=== PATIENT | male | born 1945 | race Caucasian/White ===

== ENCOUNTER 2022-03-23 19:40 | Emergency (ER) | payer MEDICARE, SELFPAY ==
--- NOTE | ~2022-03-23 | CT_ITS ---
EXAMINATION: CT brain wo con DATE: 03/23/2022 20:40 INDICATION: Left facial weakness. TECHNIQUE: Computed tomography (CT) of the head was performed without intravenous contrast. The mA wa s adjusted according to patient size. Iterative reconstruction technique was employed. The dose-lengt h product was 605.33 mGy-cm. 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 There is no intracranial hemorrhage or abnormal mass lesion. The ventricles are normal in size. The orbits are normal. The paranasal sin uses are clear. There is a small left mastoid effusion. IMPRESSION: 1. 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 Reviewed, dictated and finalized at location A. 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
[2022-03-23 19:46] VITALS: BP 148/80; PULSE 70; RESP 16; TEMP 36.7; O2SAT 100
[2022-03-23 20:09] VITALS: BP 131/76; PULSE 91; RESP 16; O2SAT 95
--- NOTE | 2022-03-23 20:22 | ED.GENADULT ---
HPI - General Adult General Chief complaint: Neuro Symptoms/Deficit Stated complaint: Facial Droop(for weeks) Time Seen by Provider: 03/23/22 19:53 History of Present Illness HPI narrative: this is a 68-year-old male presenting ED with a chief complaint of confusion. The patient is here with his Halina. Patient has no complaints outside of some possible numbness to his left side of his lips that has been going on for several weeks. The patient's is concerned because she feels that he has had several episodes of confusion over the last week and half. 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 She also says that he has been getting lost while driving. This confusion is not persistent and is only in those isolated episodes. She is concerned because they have it vacation planned in May and she wants to make sure he is okay before they leave. The patient denies headache, chest pain, difficulty breathing, belly pain, urinary problems, GI problems, numbness tingling weakness in extremity, balance issues difficulty speaking or swallowing. Related Data Allergies Allergy/AdvReac Type Severity Reaction Status Date / Time Penicillins Allergy Unknown Verified 11/06/17 14:47 Review of Systems Review of Systems: CONSTITUTIONAL: Denies night sweats. EYES: No eye pain ENT: Denies rhinorrhea CARDIOVASCULAR: Denies palpitations RESPIRATORY: Denies hemoptysis GASTROINTESTINAL: Denies hematemesis GENITOURINARY: Denies hematuria. SKIN: Denies rash MUSCULOSKELETAL: Denies myalgia. NEUROLOGIC: Denies weakness. PSYCHIATRIC: Denies delusions [facility] Past Medical History Medical History (Updated 03/23/22 @ 21:30 by Toni Meadows MD) Diabetes H/O prostate cancer Family History Family History Other Family history of Alzheimer's disease Family history of alcoholism Family history of hypercholesterolemia Family history of throat cancer Social History Social History Smoking status: Former smoker Smoking end date: 02/24/93 Alcohol intake: current Exam Narrative: APPEARANCE: No apparent distress. Patient is A&O x4, is pleasant polite Head: atraumatic. EYES: EOMI, NOSE: Atraumatic NECK: Trachea midline RESPIRATORY: No increased rate of breathing, CTAB CARDIOVASCULAR: RRR, ABDOMINAL: Non-distended, soft no guarding or rebound MUSCULOSKELETAl: No obvious deformities NEURO: Alert. Cranial nerves 2-12 grossly intact. Sensation light touch, motor function cerebellar function intact for 4 extremities. Gait exam was normal. No significant facial droop. SKIN:: Warm, dry. Normal color PSYCHIATRIC: Normal affect Course Vital Signs Vital signs: Vital Signs Temperature 98.1 F 03/23/22 19:46 Pulse Rate 70 03/23/22 19:46 Respiratory Rate 16 03/23/22 19:46 Blood Pressure 148/80 H 03/23/22 19:46 Pulse Oximetry 100 03/23/22 19:46 Oxygen Delivery Room Air 03/23/22 19:46 Temperature 98.1 F 03/23/22 19:46 Pulse Rate 91 03/23/22 20:09 Respiratory Rate 16 03/23/22 20:09 Blood Pressure 131/76 03/23/22 20:09 Pulse Oximetry 95 03/23/22 20:09 Oxygen Delivery Room Air 03/23/22 19:46 Medical Decision Making [facility] Narrative Medical decision making narrative: -Presentation:76-year-old male presenting with several episodes of confusion over the last week. Facial droop is minimal and there are no other neurologic findings. CT head, CBC, BMP and urinalysis have been ordered. 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
[2022-03-23 20:36] LABS: Basophils Percent Auto 0.4 % (0.2-1.2); Eosinophils Absolute Auto 0.1 K/mm3 (0-0.3); Eosinophils Percent Auto 0.7 % (0-4.4); Hematocrit 41.2 % (42.0-52.0); Hemoglobin 14.5 g/dL (14.0-18.0); Immature Granulocyte Absolute 0.01 K/mm3 (0.00-0.031); Immature Granulocyte Percent A 0.1 % (0-0.5); Lymphocytes Percent Auto 18.4 % (18.3-44.2); Mean Corpuscular HGB Conc 35.2 g/dl (32-36); Mean Corpuscular Hemoglobin 31.8 pg (26-34); Mean Corpuscular Volume 90.4 fl (80-100); Mean Platelet Volume 8.3 fl (7.4-10.4); Monocytes Absolute Auto 0.9 K/mm3 (0.1-0.6); Monocytes Percent Auto 10.4 % (2.6-8.5); Neutrophils Absolute Auto 5.7 K/mm3 (1.3-6.7); Platelet Count Result 196 k/mm3 (150-375); Red Blood Count 4.56 M/mm3 (4.6-6.20); Red Cell Distribution Width 12.9 % (11.5-14.5); White Blood Count 8.2 K/mm3 (4.5-10.0)
[2022-03-23 20:43] VITALS: BP 125/83; PULSE 78; RESP 18; O2SAT 95
[2022-03-23 20:45] LABS: Alanine Aminotransferase 19 U/L (6-50); Alkaline Phosphatase 88 U/L (38-126); Anion Gap 7 mmol/L (8-16); Aspartate Amino Transferase 28 U/L (17-59); Bilirubin,Total 0.9 mg/dL (0.2-1.3); Blood Urea Nitrogen 21 mg/dL (9-20); Calcium 9.1 mg/dL (8.4-10.2); Carbon Dioxide 27 mmol/L (22-30); Chloride 105 mmol/L (98-107); Estimated CRCL calculation 46 ml/min; Estimated Glomerular Filt Rate 53; Glucose 112 mg/dL (65-110); Potassium 3.4 mmol/L (3.4-5.0); Sodium 139 mmol/L (137-145)
[2022-03-23 20:54] LABS: Appearance Urine Clear (Clear); Bilirubin Urine Negative (Negative); Blood Urine Trace-intact (Negative); Color Urine Yellow (Yellow); Glucose Urine UA Negative (Negative); Ketones Urine Negative (Negative); Leukocyte Esterase Ur Negative LEU/UL (Negative); Nitrate Urine Negative (Negative); Protein Urine Negative (Negative); Urobilinogen Urine 0.2 mg/dL (<2.0); pH Urine 5.5 (5.0-9.0)
[2022-03-23 21:00] VITALS: BP 123/74; PULSE 80; RESP 18; O2SAT 95
[2022-03-23 21:03] LABS: Mucus Urine Rare /lpf; Squamous Epithelial Cell Urine Rare /hpf (Few); WBC Urine 0-3 /hpf
[2022-03-23 21:05] LABS: Add Urine Microscopic? YES
[2022-03-23 21:32] VITALS: BP 139/86; PULSE 77; RESP 13; O2SAT 95
== END 2022-03-23 21:44 | disposition home or self-care (01) ==
PROVIDERS: Emergency Provider Emergency Medicine
DX: F03.90 Unspecified dementia, unspecified severity, without behavioral disturbance, psychotic disturbance, mood disturbance, and anxiety (principal); E11.9 Type 2 diabetes mellitus without complications; E78.00 Pure hypercholesterolemia, unspecified; Z85.46 Personal history of malignant neoplasm of prostate; Z87.891 Personal history of nicotine dependence
CPT/HCPCS: 36415; 70450; 80053; 81001; 85025; 99284

== ENCOUNTER 2022-06-29 11:19 | Emergency (ER) | payer MEDICARE, SELFPAY ==
[2022-06-29 11:22] VITALS: BP 141/68; PULSE 99; RESP 18; TEMP 36.7; O2SAT 94
[2022-06-29 11:51] LABS: Basophils Absolute Auto 0.1 K/mm3 (0.0-0.1); Basophils Percent Auto 0.7 % (0.2-1.2); Eosinophils Percent Auto 0.2 % (0-4.4); Hematocrit 40.5 % (42.0-52.0); Hemoglobin 14.3 g/dL (14.0-18.0); Immature Granulocyte Absolute 0.02 K/mm3 (0.00-0.031); Immature Granulocyte Percent A 0.2 % (0-0.5); Lymphocytes Absolute Auto 1.25 K/mm3 (0.9-3.2); Lymphocytes Percent Auto 14.8 % (18.3-44.2); Mean Corpuscular HGB Conc 35.3 g/dl (32-36); Mean Corpuscular Hemoglobin 31.8 pg (26-34); Mean Platelet Volume 8.4 fl (7.4-10.4); Monocytes Absolute Auto 0.8 K/mm3 (0.1-0.6); Monocytes Percent Auto 9.7 % (2.6-8.5); Neutrophils Absolute Auto 6.3 K/mm3 (1.3-6.7); Neutrophils Percent Auto 74.4 % (45.5-73.1); Platelet Count Result 242 k/mm3 (150-375); Red Cell Distribution Width 12.8 % (11.5-14.5); White Blood Count 8.5 K/mm3 (4.5-10.0)
[2022-06-29 11:59] LABS: Alanine Aminotransferase 21 U/L (6-50); Albumin Level 4.3 g/dL (3.5-5.1); Alkaline Phosphatase 112 U/L (38-126); Anion Gap 9 mmol/L (8-16); Aspartate Amino Transferase 35 U/L (17-59); Bilirubin,Total 1.5 mg/dL (0.2-1.3); Blood Urea Nitrogen 22 mg/dL (9-20); Carbon Dioxide 28 mmol/L (22-30); Chloride 103 mmol/L (98-107); Estimated CRCL calculation 52 ml/min; Estimated Glomerular Filt Rate > 60; Glucose 119 mg/dL (65-110); Potassium 3.2 mmol/L (3.4-5.0); Sodium 140 mmol/L (137-145)
[2022-06-29 12:02] LABS: INR 1.1; Prothrombin Time 14.3 Seconds (11.1-14.7)
[2022-06-29 12:03] LABS: Partial Thromboplastin Time 26.2 SECONDS (22.3-36.8)
[2022-06-29 12:42] VITALS: BP 132/68; PULSE 80
[2022-06-29 12:44] VITALS: BP 124/64; PULSE 83
[2022-06-29 12:46] VITALS: BP 124/68; PULSE 88
--- NOTE | 2022-06-29 13:28 | ED.GIBLEED ---
HPI - GI Bleed General Chief complaint: GI Bleed Stated complaint: dark stool Time Seen by Provider: 06/29/22 11:36 History of Present Illness HPI Narrative: Patient is a 76-year-old male who presents ER with concerns for GI bleeding. Reports he returned from a cruise in the last week. Reports problems. She developed diarrhea beginning 06/16/2022. 3 days ago he began having dark black stools. In place may be associated with starting Pepto-Bismol. Last diarrhea was today. He has occasional cramping in his abdomen. No dyspepsia. No emesis. Denies fevers or chills he is on no blood thinning medication. No dizziness when going from sitting to standing. No syncope. Related Data Allergies Allergy/AdvReac Type Severity Reaction Status Date / Time Penicillins Allergy Unknown Verified 11/06/17 14:47 Review of Systems Review of Systems: All systems reviewed & are unremarkable except as noted in HPI and below Constitutional: Constitutional: Denies chills, Denies fatigue and Denies fever(s) ENT: Denies nasal congestion and Denies sore throat Cardiovascular: Cardiovascular: Denies chest pain and Denies radiating jaw, neck or arm pain Respiratory: Respiratory: Denies cough and Denies dyspnea Gastrointestinal: Gastrointestinal: Denies abdominal pain, Reports bloating, Denies heartburn, Reports diarrhea, Denies nausea and Denies vomiting Comments: Dark black stools. Neurologic: Denies syncope PMFSH Past Medical History Medical History (Updated 06/29/22 @ 13:51 by Aaron Pedersen MD) Diabetes H/O prostate cancer Family History Family History Other Family history of Alzheimer's disease Family history of alcoholism Family history of hypercholesterolemia Family history of throat cancer Social History Social History Smoking status: Former smoker Smoking end date: 02/24/93 Alcohol intake: current Exam Narrative: GENERAL: Well-appearing, well-nourished, and in no acute distress. HEAD: Normocephalic, atraumatic. EYES: PERRL and EOMI. ENT: Mucous membranes moist. CHEST: Clear to auscultation. No respiratory distress. HEART: Regular rate and rhythm. Normal peripheral pulses. ABDOMEN: Soft, nontender, nondistended. Hemoccult positive without gross blood. EXTREMITIES: Normal range of motion. No edema. SKIN: Warm, dry, no rash. NEURO: Alert and oriented x3. PSYCH: Normal mood and affect. Course Course Emergency Course: Patient resting comfortably. Informed results. Discussed case with Dr. Bravo triage with GI. Patient be placed on PPI for home and also a short course of antibiotics for traveler's diarrhea. Patient family verbalized understanding of treatment plan and they will follow-up with GI outpatient discussed return precautions. Vital Signs Vital signs: Vital Signs Temperature 98.1 F 06/29/22 11:22 Pulse Rate 99 06/29/22 11:22 Respiratory Rate 18 06/29/22 11:22 Blood Pressure 141/68 H 06/29/22 11:22 Pulse Oximetry 94 06/29/22 11:22 Oxygen Delivery Room Air 06/29/22 11:22 Temperature 98.1 F 06/29/22 11:22 Pulse Rate 88 06/29/22 12:46 Respiratory Rate 18 06/29/22 11:22 Blood Pressure 124/68 06/29/22 12:46 Pulse Oximetry 94 06/29/22 11:22 Oxygen Delivery Room Air 06/29/22 11:22 MDM - GI Bleed Lab Data 06/29/22 11:43 06/29/22 11:43 Labs: Lab Results 06/29/22 Range/Units 11:43 WBC 8.5 (4.5-10.0) K/mm3 RBC 4.50 L (4.6-6.20) M/mm3 Hgb 14.3 (14.0-18.0) g/dL Hct 40.5 L (42.0-52.0) % MCV 90.0 (80-100) fl MCH 31.8 (26-34) pg MCHC 35.3 (32-36) g/dl RDW 12.8 (11.5-14.5) % Plt Count 242 (150-375) k/mm3 MPV 8.4 (7.4-10.4) fl Immature Gran % (Auto) 0.2 (0-0.5) % Neut % (Auto) 74.4 H (45.5-73.1) % Lymph % (Auto) 14.8 L (18.3-44.2) % Bent % (Auto)
== END 2022-06-29 14:06 | disposition home or self-care (01) ==
PROVIDERS: Emergency Provider Emergency Medicine
DX: A09 Infectious gastroenteritis and colitis, unspecified (principal); K92.2 Gastrointestinal hemorrhage, unspecified; E11.9 Type 2 diabetes mellitus without complications; Z85.46 Personal history of malignant neoplasm of prostate; Z87.891 Personal history of nicotine dependence
CPT/HCPCS: 36415; 80053; 85025; 85610; 85730; 86850; 86900; 86901; 99283

== ENCOUNTER 2024-10-01 02:58 | Emergency (ER) | payer OTHER, SELFPAY ==
--- NOTE | ~2024-10-01 | CT_ITS ---
CT of the Abdomen and Pelvis: Indication: Abdominal pain Technique: 2.5 mm axial scans were obtained through the abdomen and pelvis following intravenous adm inistration of 100 cc of Omnipaque 350. Dose reduction technique was used on this scan by utilizing a utomated exposure control and iterative reconstruction technique. The dose-length product (DLP) was 7 34.58 mGy-cm. Findings: Scans through the lung bases demonstrate bibasilar atelectasis and bibasilar probable pleu ral thickening or scarring. The liver, spleen, pancreas, adrenals and left kidney are within normal limits. Small gallstones are present. Suggest a mild posterior right ureter with mild asymmetric right perinephric stranding. Ther e are atherosclerotic calcifications of the aorta. No lymphadenopathy. No bowel obstruction or bowel wall thickening. There is no evidence to suggest acute appendicitis. Images through the pelvis were performed. Tiny urinary bladder stone present. No pelvic mass evident. No ascites. Impression: Cholelithiasis. Tiny urinary bladder stone. Mild fullness of the right ureter and right perinephric stranding could r eflect sequelae of recently passed stone. Bibasilar atelectasis and pleural thickening/scarring. Reviewed, dictated and finalized at location . Impression: Cholelithiasis. Tiny urinary bladder stone. Mild fullness of the right ureter and right perinep hric stranding could reflect sequelae of recently passed stone. Bibasilar atelectasis and pleural thickening/scarring.
--- OUTSIDE RECORDS SUMMARY | 2024-10-01 02:59 | XMS_ITS | Continuity of Care Document ---
Author Organization [facility] Address [address] [place] [address] Phone Care Team Providers Care Informatics Manager Name Role Phone Alexis Blue MD Unavailable Unavailable Allergies, Adverse Reactions, Alerts Substance Reaction Status Criticality penicillin G Active No Information Medications Medication Instructions Dosage Effective Dates (start - stop) Status Comments metformin ER 1,000 mg tablet,extended release 24hr take 1 tablet (1000MG) by oral route every day with the evening meal 1000 MG - Active Lipitor 40 mg tablet take 1 tablet (40MG ) by oral route every day 40 MG - Active Lopid 600 mg tablet take 1 tablet (600MG ) by oral route 2 times every day 30 minutes before morning and evening meal 600 MG - Active losartan 50 mg tablet take 1 tablet (50MG) by oral route every day - Active Procedures Procedure Date OFFICE/OUTPATIENT VISIT, EST PREV VISIT, EST, 65 & OVER OFFICE/OUTPATIENT VISIT, EST OFFICE/OUTPATIENT VISIT, EST OFFICE/OUTPATIENT VISIT, EST OFFICE/OUTPATIENT VISIT, EST PREV VISIT, EST, 65 & OVER OFFICE/OUTPATIENT VISIT, EST OFFICE/OUTPATIENT VISIT, EST PREV VISIT, EST, 65 & OVER OFFICE/OUTPATIENT VISIT, EST OFFICE/OUTPATIENT VISIT, EST Advance Directives Directive Yes / No Effective Date File Name No Information Encounters Encounter Description Practice Location Reason(s) For Visit Diagnoses Date Provider Providers Copied on Encounter OFFICE/OUTPA TIENT VISIT, EST [facility], [address], [place], [place], [address], [place] tel:[phone] [facility] HLP (chief complaint) DM (chief complaint) HTN (chief complaint) Dietary surveillance and counselingUnspecifi ed essential hypertensionOther and unspecified hyperlipidemiaBritt le diabetesPSA increased 5 Mirza Espinoza. [address], [place], [place], [address] , [place]. tel:[phone] Referring Provider: Alexis Blue, [address], [place], [place], [address]. tel:[phone] PREV VISIT, EST, 65 & OVER [facility], [address], [place], [place], [id number], [place] tel:[phone] [facility] PHysicaxl (chief complaint) Dietary surveillance and counselingRoutine medical examPSA increasedOther and unspecified hyperlipidemiaBritt le diabetes 5 Mirza Espinoza. [address], [place], [place], [address] , [place]. tel:[phone] Referring Provider: Alexis Blue, [address], [place], [place], [address]. tel:[phone] [facility], [address], [place], [place], [address], [place] tel:[phone] [facility] No Information 5 Mirza Espinoza. [address], [place], [place], [address] , [place]. tel:[phone] [facility], [address], [place], [place], [address], [place] tel:[phone] [facility] No Information 5 Mirza Espinoza. [address], [place], [place], [address] , [place]. tel:[phone] OFFICE/OUTPA TIENT VISIT, EST [facility], [address], [place], [place], [address], [place] tel:[phone] [facility] HTN (chief complaint) shingle (chief complaint) DM (chief complaint) GERD (chief complaint) Dietary surveillance and counselingHypertens ion, UnspecifiedDiabetes Mellitus, Adult Onset, UncontrolledHerpes zoster without mention of complicationGERD 5 Mirza Espinoza. [address], [place], [place], [address] , [place]. tel:[phone] Referring Provider: Alexis Blue, [address], [place], [place], [address]. tel:[phone] OFFICE/OUTPA TIENT VISIT, [facility], [address], [place], [place], [address], [place] tel:[phone] [facility] rash (chief complaint) Herpes zoster without mention of complication 5 Mirza Espinoza. [address], [place], [place], [address] , [place]. tel:[phone] Referring Provider: Gus [address], [place], [place], [address]. tel:[phone] OFFICE/OUTPA TIENT VISIT, [facility], [address], [place], [place], [address], [place] tel:[phone] [facility] HLP (chief complaint) DM (chief complaint) HTN (chief complaint) cough (chief complaint) Dietary surveillance and counselingDiabetes Mellitus Type 2, UncomplicatedHypert ension, UnspecifiedOther and unspecified hyperlipidemiaCough 4 Mirza Espinoza. [address], [place], [place], [address] , [place]. tel:[phone] Referring Provider: [address], [place], [place], [address]. tel:[phone] PREV VISIT, EST, 65 & OVER [facility], [address], [place], [place], [address], [place] tel:[phone] [facility] PHysical (chief complaint) Dietary surveillance and counselingRoutine Medical ExamDiabetes Mellitus Type 2, UncomplicatedHypert ension, UnspecifiedOther and unspecified hyperlipidemiaRouti ne Medical Exam 4 Mirza Benson [address], [place], [place], [address] , [place]. [phone] Referring Provider: [address], [place], [place], [address]. tel:[phone] OFFICE/OUTPA TIENT VISIT, [facility], [address], [place], [place], [address], [place] tel:[phone] [facility] skin infection (chief complaint) Dietary surveillance and counselingCelluliti s and abscess of leg, except foot 3 Mirza Benson [address], [place], [place], [address] , [place]. [phone] Referring Provider: [address], [place], [place], [address]. tel:[phone] PREV VISIT, EST, 65 & OVER [facility], [address], [place], [place], [address], [place] tel:[phone] [facility] Physical (chief complaint) Dietary surveillance and counselingRoutine Medical ExamOther and unspecified hyperlipidemiaDiabe chris Mellitus, Adult Onset, UncontrolledRoutine Medical ExamGERD 3 Mirza Benson [address], [place], [place], [address] , [place]. [phone] Referring Provider: Gus [address], [place], [place], [address]. tel:[phone] OFFICE/OUTPA TIENT VISIT, [facility], [address], [place], [place], [address], [place] tel:[phone] [facility] HLP (chief complaint) DM (chief complaint) early satiety (chief complaint) Dietary surveillance and counselingDiabetes Mellitus Type 2, UncomplicatedOther and unspecified hyperlipidemiaHyper tension, Unspecified 2 Mirza Benson [address], [place], [place], [address] , . tel:[phone] Referring Provider: [address], [place], [place], [address]. tel:[phone] Family History Family Member Type Diagnosis Age At Onset Father Problem (finding) Cancer, throat Mother Problem (finding) natural cause Brother Problem (finding) Alive and well Payers Payer name Insurance type Covered constitution party ID Authoriza tion(s) No Information Social History Type Description Quantity Date Captured Comments Alcohol Use Details Caffeine Use Details Unknown Tobacco Use Status Occasional cigarette smoker Smoking Status Current some day smoker 015 Sex Male Vital Signs Date / Time: Height Weight BMI Pulse Rate Blood Pressure Temperature Respiratory Rate Body Surface Area Head Circumference BMI percentile Pulse Ox Inhaled Ox 4:55 PM 172.72 cm 213.00 lbs 32.3 9 kg/m eter (2) 76 /min 101/64 mm[Hg] 98.6 F 14 /min Chief Complaint And Reason For Visit From encounter dated '11/07/2014 15:30'. HLP (chief complaint). Description: Pt takes lopid and lipitor. Pt denies any myalgai DM (chief complaint). Description: Pt takes metformin. Pt has been doing better with diet and exercise. Pt is cutting down on fat and carb now HTN (chief complaint). Description: Pt takes losartan for HTN. His BP is ok. Plan Of Treatment Date Type Action Status Referral Ordered: Urology (related to PSA increased) ordered Referral Ordered: Referrals: Urology. Evaluate and treat ordered Referral Ordered: CHEST X-RAY PA/LAT TWO-VIEWS ordered History Of Present Illness Encounter Date Complaint History Of Prese nt Illness HTN Pt takes losarta n for HTN. His BP is ok. DM Pt takes metform in. Pt has been doing better with diet and exercise. Pt is cutting down on fat and carb now HLP Pt takes lopid a nd lipitor. Pt denies any myalgai PHysicaxl Pt needs annual physical. Pt had borderline Diabette. His A1c is 6.3. P takes metformin and his BG is around 115 at home. Pt has low vitamin D and also mildly elevated TG. His PSA is creeping up. Pt denies any urinary symptmos. Pt denies any other ocmplaints Instructions Date Instruction Additional Infor mation Prescribed Diet Educ ation/Lifestyle Education Regarding Diet Related to Dietary Surveillance and Counseling Prescribed Activity and Exercise Education Related to Dietary Surveillance and Counseling Prescribed Activity and Exercise Education Related to Dietary Surveillance and Counseling Prescribed Diet Educ ation/Lifestyle Education Regarding Diet Related to Dietary Surveillance and Counseling Physical activity counseling Rel ated to Dietary surveillance counseling Decrease caloric intake Related to Dietary surveillance counseling Dietary counseling Related to Di etary surveillance counseling Decrease caloric intake Related to Dietary surveillance counseling Dietary counseling Related to Di etary surveillance counseling Decrease caloric intake Related to Dietary surveillance counseling Dietary counseling Related to Di etary surveillance counseling Decrease caloric intake Related to Dietary surveillance counseling Dietary counseling Related to Di etary surveillance counseling Decrease caloric intake Related to Dietary surveillance counseling Decrease caloric intake Related to Dietary surveillance counseling Dietary counseling Related to Di etary surveillance counseling Assessments Type Assessment Date assessment Dietary surveillance and genetic counsellor ing assessment Unspecified essential hypertensi on assessment Other and unspecified hyperlipid emia assessment Brittle diabetes assessment PSA increased Mental Status Date Cognitive Assessment Orientation - [place] ed to time, place, person, situation.
--- OUTSIDE RECORDS SUMMARY | 2024-10-01 03:00 | XMS_ITS | Continuity of Care Document ---
Author Organization [facility] Address [address] [place] [address] Phone Care Team Providers Care Pail Bailer Name Role Phone [facility] Unavailable Unavail able Hannah Colindres Unavailable Unavailable Procedures Procedure Date Miscellaneous Vision Service - Supplies Vision Svcs Frames Purchases BF Plastic Sphcyl [place] To +/-4d .12-2d Scratch Resistant Coating Tint Photochromatic, Plastic Eye Exam, New Patient Refraction Advance Directives Directive Yes / No Effective Date File Name No Information Encounters Encounter Description Practice Location Reason(s) For Visit Diagnoses Date Provider Providers Copied on Encounter [facility], [address] [place] [address] [address], [place], [place], [address], [place] tel:[phone] [facility] No Information 7 [facility] . [address] [place] [address], [id number], [place]. tel:[phone] Consulting Provider: Hannah Colindres, [address] [place], [address]. tel:[phone] [facility], [address] [place] [address] [address], [place], [place], [address], tel:[phone] [facility] No Information 200 7 [facility] . [address], [place], [address], [place]. tel:[phone] Referring Provider: Mariano Alicea OD Rodri, [address], [place], [address]. tel:[phone] singer Provider: Isabelle De Leon, [address] [facility], [place], [address]. tel:[phone] [facility], [address], [place], [place], [address], [place] tel:[phone] [facility] No Information 7 Alicea MONIQUE Quintana. [address] , [address], [place], [address], [place]. tel:[phone] Family History Family Member Type Diagnosis Age At Onset No Information Payers Payer name Insurance type Covered alliance party ID Authoriza tion(s) No Information Social History Type Description Quantity Date Captured Comments Sex Male Smoking Status No Information Chief Complaint And Reason For Visit No Information Reason For Referral Reason For Referral No Information History Of Present Illness Encounter Date Complaint History Of Prese nt Illness No Information Functional Status Date Functional Assessmen t No Information Instructions Date Instruction Additional Infor mation No Information Assessments Type Assessment Date No Information Patient Care Teams Name Effective Dates (start - stop) Status Members No Information
--- OUTSIDE RECORDS SUMMARY | 2024-10-01 03:00 | XMS_ITS | Continuity of Care Document ---
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 It does not include entries that were removed or entered in error. 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 [facility] Deficiency of vitamin D3 Active Condition [facility] Diabetes mellitus Active Condition [facility] Exposure to potentially hazardous substance Active Condition [facility] Gastroesophageal reflux disease Active Condition [facility] Hyperlipidemia Active Condition [facility] Hypertension Active Condition [facility] Mild cognitive impairment Active Condition Sep 20, 2022 Entered By: EMIR HENDERSON Comment: Mild Vascular Neurocognitive Disorder [facility] Prostate cancer Active Condition [facility] Tinnitus Active Condition [facility] Diagnosis: ICD-10-CM H04.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 Active Diagnosis [facility] Diagnosis: ICD-10-CM L21.8 Other seborrheic dermatitis Active Diagnosis [facility] Diagnosis: ICD-10-CM I10 Essential (primary) hypertension Active Diagnosis [facility] Diagnosis: ICD-10-CM H91.93 Unspecified hearing loss, bilateral Active Diagnosis [facility] Diagnosis: ICD-10-CM I49.9 Cardiac arrhythmia, unspecified Active Diagnosis [facility] Diagnosis: ICD-10-CM 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 [facility] Diagnosis: ICD-10-CM H90.3 Sensorineural hearing loss, bilateral Active Diagnosis [facility] Diagnosis: ICD-10-CM R42 Dizziness and giddiness Active Diagnosis [facility] Diagnosis: ICD-10-CM E11.9 Type 2 diabetes mellitus without complications Active Diagnosis [facility] Diagnosis: ICD-10-CM I95.1 Orthostatic hypotension Active Diagnosis [facility] Diagnosis: ICD-10-CM L30.9 Dermatitis, unspecified Active Diagnosis [facility] Medications Combined list of outpatient medications from Department of Defense and [facility] Affairs facilities.Medications provided include 1) outpatient medications from the last 15 months, and 2) patient-reported medications. Medication Details Route Status Patient Instructions Prescription Expires Prescription Number Last Dispense Date Ordering Provider Order Date Order Qty Source AMLODIPINE BESYLATE 10MG TAB TAKE ONE TABLET BY MOUTH ONCE A DAY FOR HEART/BL OOD PRESSURE ORAL ACTIVE 04/17/2025 [id number] ACTY LINO 2024 90 [facility] AMLODIPINE BESYLATE 10MG TAB TAKE ONE TABLET BY MOUTH ONCE A DAY FOR HEART/BL OOD PRESSURE ORAL DISCONT INUED 03/11/2024 [id number] ME CARLO TTISA 2023 90 [facility] ATORVASTATI N CA 80MG TAB TAKE ONE-HALF TABLET BY MOUTH EVERY EVENING FOR CHOLESTE ROL. REPORT ANY UNEXPLAI SHAHZAD MUSCLE PAIN/WEA KNESS TO PROVIDER . ORAL ACTIVE 07/07/2025 [id number] ME CARLO TTISA 2024 45 [facility] ATORVASTATI N CA 80MG TAB TAKE ONE-HALF TABLET BY MOUTH EVERY EVENING FOR CHOLESTE ROL. REPORT ANY UNEXPLAI SHAHZAD MUSCLE PAIN/WEA KNESS TO PROVIDER . ORAL DISCONT INUED 07/04/2024 [id number] CARLOME TTISA 2024 45 [facility] ATORVASTATI N CA 80MG TAB TAKE ONE-HALF TABLET BY MOUTH EVERY EVENING FOR CHOLESTE ROL. REPORT ANY UNEXPLAI SHAHZAD MUSCLE PAIN/WEA KNESS TO PROVIDER . ORAL DISCONT INUED 03/11/2024 [id number] MATOS,ME TTISA 2023 45 [facility] CALCIUM 200MG (CA CITRATE-950 MG) TAB TAKE THREE TABLETS BY MOUTH ONCE A DAY ORAL ACTIVE TABSTEPHAN GUARDADO THERESA L 2018 [facility] CARBOXYMETH YLCELLULOSE NA 0.5% SOLN,OPH INSTILL 1 DROP IN BOTH EYES FOUR TIMES A DAY NEEDED OPHTHA LMIC 07/07/2024 [id number] JUHI ,PJ 2023 30 [facility] CHOLECALCIF YARELIS 50MCG (2,000UNIT) TAB TAKE ONE TABLET BY MOUTH ONCE A DAY FOR VITAMIN D DEFICIEN CY. ORAL ACTIVE 07/07/2025 [id number] MATOS,WI TTISA 2024 100 [facility] CHOLECALCIF YARELIS 50MCG (2,000UNIT) TAB TAKE ONE TABLET BY MOUTH ONCE A DAY FOR VITAMIN D DEFICIEN CY. ORAL DISCONT INUED 06/17/2024 [id number] 5 MATOS,WI TTISA 2024 100 [facility] CHOLECALCIF YARELIS 50MCG (2,000UNIT) TAB TAKE ONE TABLET BY MOUTH ONCE A DAY FOR VITAMIN D DEFICIEN CY. ORAL DISCONT INUED 03/11/2024 [id number] MATOS,WI TTISA 2023 100 [facility] CHONDROITIN /GLUCOSAMIN E CAP/TAB TAKE 1 CAP/TAB BY MOUTH ONCE A DAY ORAL ACTIVE STEPHAN SUÁREZ THERESA L 2018 [facility] CLOBETASOL PROPIONATE 0.05% SOLN,TOP APPLY SPARINGL Y TO AFFECTED AREA(S) THREE TIMES A DAY NEEDED FOR SEBORRHE IC DERMATIT IS (EXTERNA L USE ONLY) TOPICA L ACTIVE 04/22/2025 [id number] XAVIER CRAWFORD G 2024 50 [facility] CLOBETASOL PROPIONATE 0.05% SOLN,TOP APPLY SPARINGL Y TO AFFECTED AREA(S) THREE TIMES A DAY NEEDED FOR SEBORRHE IC DERMATIT IS (EXTERNA L USE ONLY) TOPICA L DISCONT INUED 05/16/2024 [id number] NAOMI STEEL P 2023 50 [facility] CARMELO N EMPAGLIFLOZ IN 25MG TAB TAKE ONE-HALF TABLET BY MOUTH ONCE A DAY FOR DIABETES ORAL 03/11/2024 [id number] CARLOWI TTISA 2023 45 [facility] KETOCONAZOL E 2% SHAMPOO USE SHAMPOO TO AFFECTED AREA(S) ONCE A DAY (EXTERNA L USE ONLY) (SHAKE WELL) TOPICA L ACTIVE 04/17/2025 [id number] CATY LINO 2024 120 [facility] KETOCONAZOL E 2% SHAMPOO USE SHAMPOO TO AFFECTED AREA(S) ONCE A DAY (EXTERNA L USE ONLY) (SHAKE WELL) TOPICA L DISCONT INUED 03/11/2024 [id number] 5 CARLOWI TTISA 2023 120 [facility] METFORMIN HCL 500MG 24HR TAB,SA TAKE ONE TABLET BY MOUTH TWICE A DAY FOR BLOOD SUGAR CONTROL. TAKE WITH FOOD. AVOID ALCOHOL. DISCONTI NUE BEFORE GETTING XRAY DYE. ORAL ACTIVE 04/17/2025 [id number] 5 CATY LINO 2024 180 [facility] METFORMIN HCL 500MG 24HR TAB,SA TAKE ONE TABLET BY MOUTH TWICE A DAY FOR BLOOD SUGAR CONTROL. TAKE WITH FOOD. AVOID ALCOHOL. DISCONTI NUE BEFORE GETTING XRAY DYE. ORAL DISCONT INUED 03/11/2024 [id number] CARLOWI TTISA 2023 180 [facility] MULTIVITAMI NS CAP/TAB TAKE 1 TABLET BY MOUTH ONCE A DAY FOR SUPPLEME NTATION. ORAL ACTIVE 04/17/2025 [id number] 5 CATY LINO 2024 100 [facility] MULTIVITAMI NS CAP/TAB TAKE 1 TABLET BY MOUTH ONCE A DAY FOR SUPPLEME NTATION. ORAL DISCONT INUED 03/11/2024 [id number] MATOS,ME TTISA 2023 100 [facility] OMEPRAZOLE 20MG CAP,EC TAKE ONE CAPSULE BY MOUTH EVERY MORNING BEFORE A MEAL TO LOWER STOMACH ACID. TAKE 30 MINUTES PRIOR TO FOOD. ORAL ACTIVE 04/17/2025 [id number] 5 HESTERCATY BLISS C 2024 90 [facility] OMEPRAZOLE 20MG CAP,EC TAKE ONE CAPSULE BY MOUTH EVERY MORNING BEFORE A MEAL TO LOWER STOMACH ACID. TAKE 30 MINUTES PRIOR TO FOOD. ORAL DISCONT INUED 03/11/2024 [id number] 4 CARLOWI TTISA 2023 90 [facility] PSYLLIUM PWDR,ORAL MIX AND DRINK 1 TEASPOON FUL BY MOUTH ONCE A DAY NEEDED FOR FIBER SUPPLEME NTATION MIX IN GLASS OF WATER/JU ICE. FLAVOR SUBSTITU TIONS MAY/WILL OCCUR AND SPECIFIC VARIETIE S WILL NOT BE PROVIDED . ORAL 03/11/2024 [id number] MATOSWI TTISA 2023 390 [facility] VITAMIN B COMPLEX CAP TAKE 1 CAPSULE BY MOUTH QAM ORAL ACTIVE STEPHAN SUÁREZ THERESA L 2018 [facility] Immunizations Combined list of available immunizations from the Department of Defense and [facility] Affairs facilities. Immunization Series Date Given Administered By Site Reaction Lot Number CVX Code Drug Overseer Kosher Kitchen Status Comments Source COVID-19 (Fashion Genome Project), MRNA, LNP-S, PF, LOVE-SUCROSE, 30 MCG/0.3 ML (AGES 12+ YEARS) 2023 309 complet ed Completed Series, HISTORICA L INFORMATI ON - FROM OTHER PROVIDER, [facility] INFLUENZA, UNSPECIFIED FORMULATION 2023 88 complet ed Completed Series, HISTORICA L INFORMATI ON - FROM OTHER PROVIDER, [facility] COVID-19 (MODERNA), MRNA, LNP-S, PF, 50 MCG/0.5 ML (AGES 12+ YEARS) 1 2023 NOHELIA NICHOLS RIGHT DELTO ID [id number] 312 complet ed [facility] AT [facility] INFLUENZA VACCINE, QUADRIVALENT, ADJUVANTED 6 2022 205 complet ed HISTORICA L INFORMATI ON - FROM OTHER REGISTRY, [facility] INFLUENZA, UNSPECIFIED FORMULATION 2022 88 complet ed Completed Series, HISTORICA L INFORMATI ON - SOURCE UNSPECIFI ED, [facility] INFLUENZA, HIGH-DOSE, QUADRIVALENT 2021 197 complet ed HISTORICA L INFORMATI ON - FROM OTHER PROVIDER, Partner:Cyrus NUNEZ.Admin istered by:[facility] [id number].( [phone]).[facility]:[phone] .Address: [address] [place] [address] [email or web address] [id number] Dosage: ML [facility].7 [facility] (PFIZER), MRNA, LNP-S, PF, 30 MCG/0.3 ML DOSE 3 2020 208 complet ed PFR; [id number]; 1 [facility] N INFLUENZA VACCINE, QUADRIVALENT, ADJUVANTED 2020 205 complet ed [facility] ZOSTER RECOMBINANT 2 2020 187 complet ed [facility] ZOSTER RECOMBINANT 1 2020 187 complet ed [facility] COVID-19 (PFIZER), MRNA, LNP-S, PF, 30 MCG/0.3 ML DOSE 2 2020 208 complet ed PFR; [id number]; 1 [facility] COVID-19 (Fashion Genome Project), MRNA, LNP-S, PF, 30 MCG/0.3 ML DOSE 1 2020 208 complet ed PFR; [id number]; [address] [facility] INFLUENZA, HIGH-DOSE, QUADRIVALENT 2019 197 complet ed HISTORICA L INFORMATI ON - FROM OTHER PROVIDER, [facility] INFLUENZA, UNSPECIFIED FORMULATION 2019 88 complet ed [facility] PNEUMOCOCCAL POLYSACCHARID E PPV23 2019 33 complet ed [facility] INFLUENZA, INJECTABLE, MDCK, PRESERVATIVE FREE, QUADRIVALENT 2018 171 complet ed 02, Partner: [facility]. Administe red by: [facility] Clinician (NPI=Not Provided) . Partner 84 Lot#: [id number] Mfr: SEQIRUS [facility] TDAP 2018 115 complet ed Right Deltoid [facility] PNEUMOCOCCAL CONJUGATE PCV 13 2018 133 complet ed vaccine sheet from [employer] [facility] INFLUENZA, UNSPECIFIED FORMULATION 2017 88 complet ed [facility] INFLUENZA, HIGH DOSE SEASONAL 2 2017 135 complet ed HISTORICA L INFORMATI ON - FROM OTHER REGISTRY, [facility] N INFLUENZA, SPLIT (INCL. PURIFIED SURFACE ANTIGEN) 1 2017 15 complet ed HISTORICA L INFORMATI ON - FROM OTHER REGISTRY, [facility] Results Combined list of recent chemistry, hematology and other laboratory results from Department of Defense and Veterans Affairs, ranging from 15 months to all on record, depending upon the facility. Order Name Results Value Reference Range Date Interpretation Specimen Comments Source GLUCOSE,BL OOD-poct (STL) GLUCOSE [MASS/VOLUM E] IN BLOOD BY AUTOMATED TEST STRIP 116 mg/dL 72 - 99 04/16 H Specimen Type: BLOOD Comment: Test Performed by: [id number] Meter #: [id number] Ordering Provider: Jose Manuel REGALADO Report Released Date/Time: Apr 16, 2024 03:10 PM Reporting Lab: [address] [facility] [address] Performing Lab: [facility] [address] [place] [address] [facility] URINALYSIS (STL-PB) COLOR OF URINE Light- Yellow 09/22 Specimen Type: URINE Comment: High concentratio ns of glucose and protein affect specific gravity. Therefore, specific gravity is corrected using the concentratio ns of glucose and protein obtained from test strip measurement. Very high concentratio ns of glucose (>1000 mg/dL) or protein (>600 mg/dL) in the urine may affect the reliability of the specific gravity results. Clinical correlation is suggested. Ordering Provider: MIGDALIA MURPHY N Report Released Date/Time: Sep 22, 2023 10:50 AM Reporting Lab: [address] Performing Lab: [address] URINALYSIS (L-PB) BILIRUBIN.T OTAL [PRESENCE] IN URINE BY TEST STRIP Negati vemg/d L 09/22 Specimen Type: URINE Comment: High concentratio ns of glucose and protein affect specific gravity. Therefore, specific gravity is corrected using the concentratio ns of glucose and protein obtained from test strip measurement. Very high concentratio ns of glucose (>1000 mg/dL) or protein (>600 mg/dL) in the urine may affect the reliability of the specific gravity results. Clinical correlation is suggested. Ordering Provider: MIGDALIA MURPHY N Report Released Date/Time: Sep 22, 2023 10:50 AM Reporting Lab: [facility] [address] [place] [phone] Performing Lab: [address] URINALYSIS (STL-PB) PH OF URINE BY TEST STRIP 6.5 5.0 - 8.0 09/22 Specimen Type: URINE Comment: High concentratio ns of glucose and protein affect specific gravity. Therefore, specific gravity is corrected using the concentratio ns of glucose and protein obtained from test strip measurement. Very high concentratio ns of glucose (>1000 mg/dL) or protein (>600 mg/dL) in the urine may affect the reliability of the specific gravity results. Clinical correlation is suggested. Ordering Provider: MIGDALIA MURPHY Report Released Date/Time: Sep 22, 2023 10:50 AM Reporting Lab: [place] [address] [place] [address] Performing Lab: [place] [address] URINALYSIS (STL-PB) APPEARANCE OF URINE Clear 09/22 Specimen Type: URINE Comment: High concentratio ns of glucose and protein affect specific gravity. Therefore, specific gravity is corrected using the concentratio ns of glucose and protein obtained from test strip measurement. Very high concentratio ns of glucose (>1000 mg/dL) or protein (>600 mg/dL) in the urine may affect the reliability of the specific gravity results. Clinical correlation is suggested. Ordering Provider: MIGDALIA MURPHY Report Released Date/Time: Sep 22, 2023 10:50 AM Reporting Lab: [place] [address] Performing Lab: [address] URINALYSIS (STL-PB) NITRITE [PRESENCE] IN URINE BY TEST STRIP Negati vemg/d L 09/22 Specimen Type: URINE Comment: High concentratio ns of glucose and protein affect specific gravity. Therefore, specific gravity is corrected using the concentratio ns of glucose and protein obtained from test strip measurement. Very high concentratio ns of glucose (>1000 mg/dL) or protein (>600 mg/dL) in the urine may affect the reliability of the specific gravity results. Clinical correlation is suggested. Ordering Provider: MIGDALIA MURPHY Report Released Date/Time: Sep 22, 2023 10:50 AM Reporting Lab: [place] [address] Performing Lab: [address] [phone] [place] [address] URINALYSIS (L-PB) GLUCOSE [MASS/VOLUM E] IN URINE BY TEST STRIP >mg/dL 09/22 H Specimen Type: URINE Comment: High concentratio ns of glucose and protein affect specific gravity. Therefore, specific gravity is corrected using the concentratio ns of glucose and protein obtained from test strip measurement. Very high concentratio ns of glucose (>1000 mg/dL) or protein (>600 mg/dL) in the urine may affect the reliability of the specific gravity results. Clinical correlation is suggested. Ordering Provider: MIGDALIA MURPHY Report Released Date/Time: Sep 22, 2023 10:50 AM Reporting Lab: [place] [id number] Performing Lab: [address] URINALYSIS (L-PB) PROTEIN [MASS/VOLUM E] IN URINE BY TEST STRIP Negati vemg/d L - 20 09/22 Specimen Type: URINE Comment: High concentratio ns of glucose and protein affect specific gravity. Therefore, specific gravity is corrected using the concentratio ns of glucose and protein obtained from test strip measurement. Very high concentratio ns of glucose (>1000 mg/dL) or protein (>600 mg/dL) in the urine may affect the reliability of the specific gravity results. Clinical correlation is suggested. Ordering Provider: MIGDALIA MURPHY Report Released Date/Time: Sep 22, 2023 10:50 AM Reporting Lab: [address] [address] Performing Lab: [place] [id number] [place] [address] URINALYSIS (L-PB) URN.UROBILI NOGEN Normal mg/dL 09/22 Specimen Type: URINE Comment: High concentratio ns of glucose and protein affect specific gravity. Therefore, specific gravity is corrected using the concentratio ns of glucose and protein obtained from test strip measurement. Very high concentratio ns of glucose (>1000 mg/dL) or protein (>600 mg/dL) in the urine may affect the reliability of the specific gravity results. Clinical correlation is suggested. Ordering Provider: MIGDALIA MURPHY Report Released Date/Time: Sep 22, 2023 10:50 AM Reporting Lab: [facility] [address] [place] [phone] Performing Lab: [address] [phone] [place] [address] URINALYSIS (L-PB) HEMOGLOBIN [MASS/VOLUM E] IN URINE BY TEST STRIP Negati vemg/d L 09/22 Specimen Type: URINE Comment: High concentratio ns of glucose and protein affect specific gravity. Therefore, specific gravity is corrected using the concentratio ns of glucose and protein obtained from test strip measurement. Very high concentratio ns of glucose (>1000 mg/dL) or protein (>600 mg/dL) in the urine may affect the reliability of the specific gravity results. Clinical correlation is suggested. Ordering Provider: MIGDALIA MURPHY Report Released Date/Time: Sep 22, 2023 10:50 AM Reporting Lab: [facility] [address] [place] [phone] Performing Lab: [address] [phone] [place] [address] URINALYSIS (L-PB) KETONES [MASS/VOLUM E] IN URINE BY TEST STRIP Negati vemg/d L 09/22 Specimen Type: URINE Comment: High concentratio ns of glucose and protein affect specific gravity. Therefore, specific gravity is corrected using the concentratio ns of glucose and protein obtained from test strip measurement. Very high concentratio ns of glucose (>1000 mg/dL) or protein (>600 mg/dL) in the urine may affect the reliability of the specific gravity results. Clinical correlation is suggested. Ordering Provider: MIGDALIA MURPHY Report Released Date/Time: Sep 22, 2023 10:50 AM Reporting Lab: [address] [address] Performing Lab: [address] URINALYSIS (L-PB) URN.LEUK.ES T. Negati vemg/d L 09/22 Specimen Type: URINE Comment: High concentratio ns of glucose and protein affect specific gravity. Therefore, specific gravity is corrected using the concentratio ns of glucose and protein obtained from test strip measurement. Very high concentratio ns of glucose (>1000 mg/dL) or protein (>600 mg/dL) in the urine may affect the reliability of the specific gravity results. Clinical correlation is suggested. Ordering Provider: MIGDALIA MURPHY Report Released Date/Time: Sep 22, 2023 10:50 AM Reporting Lab: [place] [address] Performing Lab: [place] [address] [place] [address] URINALYSIS (L-PB) SPECIFIC GRAVITY OF URINE 1.023 1.005 - 1.029 09/22 Specimen Type: URINE Comment: High concentratio ns of glucose and protein affect specific gravity. Therefore, specific gravity is corrected using the concentratio ns of glucose and protein obtained from test strip measurement. Very high concentratio ns of glucose (>1000 mg/dL) or protein (>600 mg/dL) in the urine may affect the reliability of the specific gravity results. Clinical correlation is suggested. Ordering Provider: MIGDALIA MURPHY N Report Released Date/Time: Sep 22, 2023 10:50 AM Reporting Lab: [place] [address] Performing Lab: [place] [id number] [place] [address] B12 COBALAMIN (VITAMIN B12) [MASS/VOLUM E] IN SERUM OR PLASMA 620 pg/mL 213 - 816 09/21 Specimen Type: SERUM No comment entered. Ordering Provider: MIGDALIA MURPHY Report Released Date/Time: Sep 22, 2023 10:50 AM Reporting Lab: [address] [address] Performing Lab: [phone] [place] [address] VITAMIN D, 25-HYDROXY 25-HYDROXYV ITAMIN D3 [MASS/VOLUM E] IN SERUM OR PLASMA 47.8 ng/mL 30 - 96 09/21 Specimen Type: SERUM No comment entered. Ordering Provider: MIGDALIA MURPHY Report Released Date/Time: Sep 22, 2023 10:50 AM Reporting Lab: [address] [address] Performing Lab: [address] [phone] [place] [address] TSH (MA-PB) THYROTROPIN [UNITS/VOLU ME] IN SERUM OR PLASMA 4.565 u[IU]/ mL 0.47 - 5 09/21 Specimen Type: SERUM No comment entered. Ordering Provider: MIGDAILA MURPHY Report Released Date/Time: Sep 22, 2023 10:50 AM Reporting Lab: [address] [address] Performing Lab: [address] [phone] [place] [address] LIPID PANEL (STL) CHOLESTEROL [MASS/VOLUM E] IN SERUM OR PLASMA 174 mg/dL 0 - 200 09/21 Specimen Type: PLASMA Comment: No hemolysis noted. Ordering Provider: MIGDALIA MURPHY Report Released Date/Time: Sep 22, 2023 10:50 AM Reporting Lab: [address] [address] Performing Lab: [address] [address] [facility] LIPID PANEL (STL) TRIGLYCERID E [MASS/VOLUM E] IN SERUM OR PLASMA 190 mg/dL 0 - 150 09/21 H Specimen Type: PLASMA Comment: No hemolysis noted. Ordering Provider: MIGDALIA MURPHY Report Released Date/Time: Sep 22, 2023 10:50 AM Reporting Lab: [address] [phone] Performing Lab: [address] [address] [facility] LIPID PANEL (STL) CHOLESTEROL IN LDL [MASS/VOLUM E] IN SERUM OR PLASMA BY CALCULATION 92 mg/dL 09/21 Specimen Type: PLASMA Comment: No hemolysis noted. Ordering Provider: MIGDALIA MURPHY Report Released Date/Time: Sep 22, 2023 10:50 AM Reporting Lab: [address] [address] Performing Lab: [address] [address] [facility] LIPID PANEL (STL) CHOLESTEROL IN HDL [MASS/VOLUM E] IN SERUM OR PLASMA 44 mg/dL 40 09/21 Specimen Type: PLASMA Comment: No hemolysis noted. Ordering Provider: MIGDALIA MURPHY Report Released Date/Time: Sep 22, 2023 10:50 AM Reporting Lab: [address] [address] Performing Lab: [address] [address] [facility] FERRITIN FERRITIN [MASS/VOLUM E] IN SERUM OR PLASMA 105.69 ng/mL 22 - 275 09/21 Specimen Type: SERUM No comment entered. Ordering Provider: MIGDALIA MURPHY Report Released Date/Time: Sep 22, 2023 11:11 AM Reporting Lab: [address] [address] Performing Lab: [address] [place] [address] [facility] IRON/TIBC PROFILE IRON BINDING CAPACITY [MASS/VOLUM E] IN SERUM OR PLASMA 323 ug/dL 250 - 450 09/21 Specimen Type: SERUM No comment entered. Ordering Provider: MIGDALIA MURPHY Report Released Date/Time: Sep 22, 2023 11:11 AM Reporting Lab: [address] [address] Performing Lab: [facility] [address] [place] [phone] [facility] IRON/TIBC PROFILE TRANSFERRIN [MASS/VOLUM E] IN SERUM OR PLASMA 258 mg/dL 163 - 344 09/21 Specimen Type: SERUM No comment entered. Ordering Provider: MIGDALIA MURPHY Report Released Date/Time: Sep 22, 2023 11:11 AM Reporting Lab: [address] [address] Performing Lab: [facility] [address] [place] [phone] [facility] IRON/TIBC PROFILE IRON SATURATION [MASS FRACTION] IN SERUM OR PLASMA 32 20 - 50 09/21 Specimen Type: SERUM No comment entered. Ordering Provider: MIGDALIA MURPHY Report Released Date/Time: Sep 22, 2023 11:11 AM Reporting Lab: [address] [address] Performing Lab: [address] [address] [facility] IRON/TIBC PROFILE IRON [MASS/VOLUM E] IN SERUM OR PLASMA 103 ug/dL 65 - 175 09/21 Specimen Type: SERUM No comment entered. Ordering Provider: MIGDALIA MURPHY Report Released Date/Time: Sep 22, 2023 11:11 AM Reporting Lab: [address] [address] Performing Lab: [address] [place] [address] [facility] CBC LEUKOCYTES [#/VOLUME] IN BLOOD BY AUTOMATED COUNT 7.5 10*3/u L 3.6 - 11.2 09/21 Specimen Type: BLOOD No comment entered. Ordering Provider: MIGDALIA MURPHY Report Released Date/Time: Sep 22, 2023 10:50 AM Reporting Lab: [address] [address] Performing Lab: [address] [address] [facility] CBC ERYTHROCYTE S [#/VOLUME] IN BLOOD BY AUTOMATED COUNT 5.05 10*6/u L 4.10 - 5.70 09/21 Specimen Type: BLOOD No comment entered. Ordering Provider: MIGDALIA MURPHY Report Released Date/Time: Sep 22, 2023 10:50 AM Reporting Lab: [address] [address] Performing Lab: [address] [phone] [place] [address] CBC HEMOGLOBIN [MASS/VOLUM E] IN BLOOD 15.7 g/dL 13.1 - 16.8 09/21 Specimen Type: BLOOD No comment entered. Ordering Provider: MIGDALIA MURPHY Report Released Date/Time: Sep 22, 2023 10:50 AM Reporting Lab: [facility] [address] [place] [phone] Performing Lab: [address] [address] [facility] CBC HEMATOCRIT [VOLUME FRACTION] OF BLOOD 45.7 38.2 - 48.4 09/21 Specimen Type: BLOOD No comment entered. Ordering Provider: MIGDALIA MURPHY Report Released Date/Time: Sep 22, 2023 10:50 AM Reporting Lab: [address] [address] Performing Lab: [facility] [address] [place] [phone] [facility] CBC MCV [ENTITIC VOLUME] BY AUTOMATED COUNT 90.5 fL 80.0 - 100.0 09/21 Specimen Type: BLOOD No comment entered. Ordering Provider: MIGDALIA MURPHY Report Released Date/Time: Sep 22, 2023 10:50 AM Reporting Lab: [address] [address] Performing Lab: [address] [address] [facility] CBC MCH [ENTITIC MASS] BY AUTOMATED COUNT 31.1 pg 27.0 - 34.0 09/21 Specimen Type: BLOOD No comment entered. Ordering Provider: MIGDALIA MURPHY Report Released Date/Time: Sep 22, 2023 10:50 AM Reporting Lab: [address] [address] Performing Lab: [address] [address] [facility] CBC MCHC [MASS/VOLUM E] BY AUTOMATED COUNT 34.4 g/dL 33.0 - 36.0 09/21 Specimen Type: BLOOD No comment entered. Ordering Provider: MIGDALIA MURPHY Report Released Date/Time: Sep 22, 2023 10:50 AM Reporting Lab: [facility] [address] [place] [phone] Performing Lab: [address] [address] [facility] CBC PLATELETS [#/VOLUME] IN BLOOD BY AUTOMATED COUNT 201 10*3/u L 150 - 400 09/21 Specimen Type: BLOOD No comment entered. Ordering Provider: MIGDALIA MURPHY Report Released Date/Time: Sep 22, 2023 10:50 AM Reporting Lab: [facility] [address] [place], [place] [phone] Performing Lab: [facility] [address] [facility] CBC PLATELET MEAN VOLUME [ENTITIC VOLUME] IN BLOOD BY AUTOMATED COUNT 9.2 fL 7.5 - 11.2 09/21 Specimen Type: BLOOD No comment entered. Ordering Provider: MIGDALIA MURPHY Report Released Date/Time: Sep 22, 2023 10:50 AM Reporting Lab: [facility] [address] [place] [phone] Performing Lab: [address] [address] [facility] CBC ERYTHROCYTE DISTRIBUTIO N WIDTH [RATIO] BY AUTOMATED COUNT 13.2 11.8 - 15.1 09/21 Specimen Type: BLOOD No comment entered. Ordering Provider: MIGDALIA MURPHY Report Released Date/Time: Sep 22, 2023 10:50 AM Reporting Lab: [facility] [address] [place] [phone] Performing Lab: [facility] [address] [place] [phone] [facility] CBC LYMPHOCYTES /100 LEUKOCYTES IN BLOOD BY AUTOMATED COUNT 17 09/21 Specimen Type: BLOOD No comment entered. Ordering Provider: MIGDALIA MURPHY Report Released Date/Time: Sep 22, 2023 10:50 AM Reporting Lab: [facility] [address] [place] [phone] Performing Lab: [facility] [address] [facility] CBC MONOCYTES/1 00 LEUKOCYTES IN BLOOD BY AUTOMATED COUNT 11 09/21 Specimen Type: BLOOD No comment entered. Ordering Provider: MIGDALIA MURPHY Report Released Date/Time: Sep 22, 2023 10:50 AM Reporting Lab: [facility] [address] [place] [phone] Performing Lab: [facility] [address] [facility] [address] [facility] CBC NEUTROPHILS /100 LEUKOCYTES IN BLOOD BY AUTOMATED COUNT 70 09/21 Specimen Type: BLOOD No comment entered. Ordering Provider: MIGDALIA MURPHY Report Released Date/Time: Sep 22, 2023 10:50 AM Reporting Lab: [facility] [address] [place] [phone] Performing Lab: [address] [address] [facility] CBC EOSINOPHILS /100 LEUKOCYTES IN BLOOD BY AUTOMATED COUNT 1 09/21 Specimen Type: BLOOD No comment entered. Ordering Provider: MIGDALIA MURPHY Report Released Date/Time: Sep 22, 2023 10:50 AM Reporting Lab: [address] [address] Performing Lab: [address] [address] [facility] CBC BASOPHILS/1 00 LEUKOCYTES IN BLOOD BY AUTOMATED COUNT 1 09/21 Specimen Type: BLOOD No comment entered. Ordering Provider: MIGDALIA MURPHY Report Released Date/Time: Sep 22, 2023 10:50 AM Reporting Lab: [address] [address] Performing Lab: [address] [address] [facility] CBC LYMPHOCYTES [#/VOLUME] IN BLOOD BY AUTOMATED COUNT 1.30 10*3/u L 0.77 - 4.50 09/21 Specimen Type: BLOOD No comment entered. Ordering Provider: MIGDALIA MURPHY Report Released Date/Time: Sep 22, 2023 10:50 AM Reporting Lab: [address] [address] Performing Lab: [address] [address] [facility] CBC MONOCYTES [#/VOLUME] IN BLOOD BY AUTOMATED COUNT 0.79 10*3/u L 0.19 - 0.80 09/21 Specimen Type: BLOOD No comment entered. Ordering Provider: MIGDALIA MURPHY Report Released Date/Time: Sep 22, 2023 10:50 AM Reporting Lab: [place] [address] Performing Lab: [address] CBC NEUTROPHILS [#/VOLUME] IN BLOOD BY AUTOMATED COUNT 5.25 10*3/u L 2.10 - 8.00 09/21 Specimen Type: BLOOD No comment entered. Ordering Provider: MIGDALIA MURPHY Report Released Date/Time: Sep 22, 2023 10:50 AM Reporting Lab: [place] [address] Performing Lab: [address] CBC EOSINOPHILS [#/VOLUME] IN BLOOD BY AUTOMATED COUNT 0.06 10*3/u L 0.00 - 0.60 09/21 Specimen Type: BLOOD No comment entered. Ordering Provider: MIGDALIA MURPHY Report Released Date/Time: Sep 22, 2023 10:50 AM Reporting Lab: [place] [address] Performing Lab: [address] CBC BASOPHILS [#/VOLUME] IN BLOOD BY AUTOMATED COUNT 0.05 10*3/u L 0.00 - 0.20 09/21 Specimen Type: BLOOD No comment entered. Ordering Provider: MIGDALIA MURPHY Report Released Date/Time: Sep 22, 2023 10:50 AM Reporting Lab: [place] [address] Performing Lab: [facility] [address] [facility] [address] [facility] COMPREHENS DANIEL METABOLIC PANEL CREATININE [MASS/VOLUM E] IN SERUM OR PLASMA 1.08 mg/dL 0.7 - 1.3 09/21 Specimen Type: PLASMA Comment: No hemolysis noted. Ordering Provider: MIGDALIA MURPHY Report Released Date/Time: Sep 22, 2023 10:50 AM Reporting Lab: [facility] [address] [facility] [address] Performing Lab: [address] [phone] [place] [address] COMPREHENS DANIEL METABOLIC PANEL UREA NITROGEN [MASS/VOLUM E] IN SERUM OR PLASMA 20.3 mg/dL 9.0 - 25.0 09/21 Specimen Type: PLASMA Comment: No hemolysis noted. Ordering Provider: MIGDALIA MRUPHY Report Released Date/Time: Sep 22, 2023 10:50 AM Reporting Lab: [facility] [address] Performing Lab: [address] [phone] [place] [address] COMPREHENS DANIEL METABOLIC PANEL GLUCOSE [MASS/VOLUM E] IN SERUM OR PLASMA 95 mg/dL 72 - 99 09/21 Specimen Type: PLASMA Comment: No hemolysis noted. Ordering Provider: MIGDALIA MURPHY Report Released Date/Time: Sep 22, 2023 10:50 AM Reporting Lab: [facility] [address] [place] [phone] Performing Lab: [address] [phone] [place] [address] COMPREHENS DANIEL METABOLIC PANEL SODIUM [MOLES/VOLU ME] IN SERUM OR PLASMA 140 meq/L 136 - 145 09/21 Specimen Type: PLASMA Comment: No hemolysis noted. Ordering Provider: MIGDALIA MURPHY Report Released Date/Time: Sep 22, 2023 10:50 AM Reporting Lab: [facility] [address] [facility] [address] Performing Lab: [facility] [address] [facility] [phone] [place] [address] COMPREHENS DANIEL METABOLIC PANEL POTASSIUM [MOLES/VOLU ME] IN SERUM OR PLASMA 3.8 meq/L 3.5 - 5 09/21 Specimen Type: PLASMA Comment: No hemolysis noted. Ordering Provider: MIGDALIA MURPHY Report Released Date/Time: Sep 22, 2023 10:50 AM Reporting Lab: [address] [address] Performing Lab: [place] [address] [facility] [phone] [place] [address] COMPREHENS DANIEL METABOLIC PANEL CHLORIDE [MOLES/VOLU ME] IN SERUM OR PLASMA 104 meq/L 98 - 107 09/21 Specimen Type: PLASMA Comment: No hemolysis noted. Ordering Provider: MIGDALIA MURPHY Report Released Date/Time: Sep 22, 2023 10:50 AM Reporting Lab: [facility] [address] [place] [phone] Performing Lab: [place] [address] [facility] [address] [facility] COMPREHENS DANIEL METABOLIC PANEL CARBON DIOXIDE, TOTAL [MOLES/VOLU ME] IN SERUM OR PLASMA 24 meq/L 22 - 31 09/21 Specimen Type: PLASMA Comment: No hemolysis noted. Ordering Provider: MIGDALIA MURPHY Report Released Date/Time: Sep 22, 2023 10:50 AM Reporting Lab: [facility] [address] [facility] [address] Performing Lab: [address] [address] [facility] COMPREHENS DANIEL METABOLIC PANEL CALCIUM [MASS/VOLUM E] IN SERUM OR PLASMA 9.8 mg/dL 8.4 - 10.4 09/21 Specimen Type: PLASMA Comment: No hemolysis noted. Ordering Provider: MIGDALIA MURPHY Report Released Date/Time: Sep 22, 2023 10:50 AM Reporting Lab: [facility] [address] [facility] [address] Performing Lab: [facility] [address] [facility] [address] [place] [address] COMPREHENS DANIEL METABOLIC PANEL PROTEIN [MASS/VOLUM E] IN SERUM OR PLASMA 7.9 g/dL 6 - 8.6 09/21 Specimen Type: PLASMA Comment: No hemolysis noted. Ordering Provider: MIGDALIA MURPHY Report Released Date/Time: Sep 22, 2023 10:50 AM Reporting Lab: [place] [address] [facility] [address] Performing Lab: [address] [place] [address] COMPREHENS DANIEL METABOLIC PANEL ALBUMIN [MASS/VOLUM E] IN SERUM OR PLASMA 4.3 g/dL 3.4 - 5 09/21 Specimen Type: PLASMA Comment: No hemolysis noted. Ordering Provider: MIGDALIA MURPHY Report Released Date/Time: Sep 22, 2023 10:50 AM Reporting Lab: [address] [address] Performing Lab: [address] [address] [facility] COMPREHENS DANIEL METABOLIC PANEL BILIRUBIN.T OTAL [MASS/VOLUM E] IN SERUM OR PLASMA 1.1 mg/dL 0.2 - 1.2 09/21 Specimen Type: PLASMA Comment: No hemolysis noted. Ordering Provider: MIGDALIA MURPHY Report Released Date/Time: Sep 22, 2023 10:50 AM Reporting Lab: [address] [address] Performing Lab: [address] [place] [address] [facility] COMPREHENS DANIEL METABOLIC PANEL ALKALINE PHOSPHATASE [ENZYMATIC ACTIVITY/VO LUME] IN SERUM OR PLASMA 119 U/L 40 - 150 09/21 Specimen Type: PLASMA Comment: No hemolysis noted. Ordering Provider: MIGDALIA MURPHY Report Released Date/Time: Sep 22, 2023 10:50 AM Reporting Lab: [address] [address] Performing Lab: [address] [phone] COMPREHENS DANIEL METABOLIC PANEL ASPARTATE AMINOTRANSF ERASE [ENZYMATIC ACTIVITY/VO LUME] IN SERUM OR PLASMA 24 U/L 5 - 34 09/21 Specimen Type: PLASMA Comment: No hemolysis noted. Ordering Provider: MIGDALIA MURPHY Report Released Date/Time: Sep 22, 2023 10:50 AM Reporting Lab: [address] [address] Performing Lab: [address] [phone] [place] [address] COMPREHENS DANIEL METABOLIC PANEL ALANINE AMINOTRANSF ERASE [ENZYMATIC ACTIVITY/VO LUME] IN SERUM OR PLASMA 12 U/L 8 - 40 09/21 Specimen Type: PLASMA Comment: No hemolysis noted. Ordering Provider: MIGDALIA MURPHY Report Released Date/Time: Sep 22, 2023 10:50 AM Reporting Lab: [address] [address] Performing Lab: [address] [address] [place] [address] COMPREHENS DANIEL METABOLIC PANEL GLOMERULAR FILTRATION RATE/1.73 SQ M.PREDICTED [VOLUME RATE/AREA] IN SERUM, PLASMA OR BLOOD BY CREATININE- BASED FORMULA (CKD-EPI 2020) 69.8 60 09/21 Specimen Type: PLASMA Comment: No hemolysis noted. Ordering Provider: MIGDALIA MURPHY Report Released Date/Time: Sep 22, 2023 10:50 AM Reporting Lab: [facility] [address] [facility] [address] Performing Lab: [facility] [address] [facility] [address] [facility] Vital Signs Combined list of inpatient and outpatient Vital Signs from Department of [facility] and [facility] Affairs, ranging from 12 months to all on record, depending upon the facility. Vital Sign Value Date Comments Source SYSTOLIC BLOOD PRESSURE 120 04/16/2024 14:13:01 [facility] DIASTOLIC BLOOD PRESSURE 69 04/16/2024 14:13:01 [facility] PULSE OXIMETRY 95 04/16/2024 14:13:01 [facility] WEIGHT 201 04/16/2024 14:13:01 [facility] BMI 31 kg/m2 04/16/2024 14:13:01 [facility] PAIN 0 04/16/2024 14:13:01 [facility] HEIGHT 68 04/16/2024 14:13:01 [facility] TEMPERATURE 98.8 04/16/2024 14:13:01 [facility] PULSE 88 04/16/2024 14:13:01 [facility] RESPIRATION 18 04/16/2024 14:13:01 [facility] Encounters Combined list of: 1) Encounters from Department of Veterans Affairs facilities going backup to the last 18 months, not all ID inpatient encounters are included; 2) Encounters from the Department of [facility] facilities going backup to 280 months. Location Location Details Encounter Type Encounter Number Reason For Visit Attending Provider ADM Date DC Date Status Disposition Source [facility] HC PRO PHONE CALL 11-20 MIN [id number] Diagnos is: ICD-10- CM E11.9 Type 2 diabete s mellitu s without complic ations MAYDEN,CHR ISTINE M 04/08 [facility] HEARING AID EXAM BOTH EARS [id number] Diagnos is: ICD-10- CM H90.3 Sensori neural hearing loss, wanda kell COLUNGAKISHORE Flaherty E 04/30 [facility] [place] [place] [id number] Diagnos is: ICD-10- CM H90.3 Sensori neural hearing loss, bilfrancisco castorena KISHORE COLUNGA E 04/30 [facility] Outpatient Encounter [id number] RACHEL MERAZ 05/06 [facility] Outpatient Encounter [id number] 05/06 [facility] OFFICE O/P EST LOW 20 MIN [id number] Diagnos is: ICD-10- CM L30.9 Dermati tis, unspeci fied TRACE RUELAS 05/15 [facility] Outpatient Encounter [id number] 05/25 [facility] Outpatient Encounter [id number] MARIA E DEL RIO 05/25 [facility] OFFICE O/P EST SF 10 MIN [id number] Diagnos is: ICD-10- CM I95.1 Orthost atic hypoten EULALIO Celaya 05/25 [facility] OFF/OP EST MAY X REQ PHY/QHP [id number] Diagnos is: ICD-10- CM I95.1 Orthost atic hypoten mahnaz COLON,CHR ISTINE M 05/[address] [facility] PT EDUCATION NOC INDIVID [id number] Diagnos is: ICD-10- CM I10 Essenti al (primar y) hyperte nsion DARLENE,CHR TOROTINE M 06/03 [facility] OFFICE O/P EST MOD 30 MIN [id number] Diagnos is: ICD-10- CM E11.9 Type 2 diabete s mellitu s without complic ations PJ REYNAGA 07/06 [facility] CONFORMITY EVALUATION [id number] Diagnos is: ICD-10- CM H91.93 Unspeci fied hearing loss, KISHORE Ga E 07/09 [facility] Outpatient Encounter [id number] 08/03 [facility] OFFICE O/P EST SF 10 MIN [id number] Diagnos is: ICD-10- CM R42 Dizzine ss and giddine ss ADALI VELAZQUEZ S 08/03 [facility] HEARING AID CHECK BOTH EARS [id number] Diagnos is: ICD-10- CM H90.3 Sensori neural hearing loss, KISHORE Ga E 08/25 [facility] En[facility] [id number] 08/25 [facility] OFFICE O/P EST HI 40 MIN [id number] Diagnos is: ICD-10- CM I10 Essenti al (primar y) hyperte nsion JEFFREY,CH IDIMMA N 09/[address] [facility] Outpatient Encounter [id number] 09/21 [facility] Outpatient Encounter [id number] 09/30 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 EXT ECG>7D<15D REV&INTERP J [id number] Diagnos is: ICD-10- CM I49.9 Cardiac arrhyth odilon, unspeci fied TABITHA ROWLANDIT 10/27 [facility] Outpatient Encounter [id number] 11/24 [facility] HEARING AID FITTING/CH ECKING [id number] Diagnos is: ICD-10- CM H91.93 Unspeci fied hearing loss, bilater al KEANU,KISHORE S E 02/01 [facility] Outpatient Encounter [id number] ANG MILLER RNISHA C 03/24 [facility] OFFICE O/P EST MOD 30 MIN [id number] Diagnos is: ICD-10- CM I10 Essenti al (primar y) hyperte CATY Norwood C 04/16 [facility] OFFICE O/P EST MOD 30 MIN [id number] Diagnos is: ICD-10- CM L21.8 Other seborrh eic dermati SABRINA Lynn 04/21 [facility] INTRM OPH EXAM EST PATIENT [id number] Diagnos is: ICD-10- CM 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 Social History Type Response Date Comment Sourc e Tobacco smoking status NHIS VA-TOBACCO FORMER USER 09/22/2023 [facility] History of tobacco use ID-TOBACCO QUIT 1 5 YRS OR MORE 09/22/2023 [facility] History of tobacco use VA-TOBACCO FORMER USER 07/09/2022 [facility] History of tobacco use ID-TOBACCO QUIT 1 5 YRS OR MORE 05/21/2021 [facility] History of tobacco use VA-TOBACCO FORMER USER 05/11/2020 [facility] History of tobacco use VA-TOBACCO FORMER USER 03/03/2018 [facility] Plan of Care List of future care activities from Department of [facility] Affairs facilities. Additional future care activities may be listed in the Assessment and Plan section. Date/Time Care Activity Care Activity Detail Facili ty 10/12/2024 AMBULATORY - NONE AMBULATORY - NONE [facility]
[2024-10-01 03:08] VITALS: BP 134/72; PULSE 70; RESP 20; TEMP 36.3; O2SAT 99
[2024-10-01 06:18] LABS: Hematocrit 45.6 % (42.0-52.0); Hemoglobin 15.5 g/dL (14.0-18.0); Immature Granulocyte Percent A 0.5 % (0-0.5); Lymphocytes Absolute Auto 0.76 K/mm3 (0.9-3.2); Mean Corpuscular HGB Conc 34.0 g/dl (32-36); Mean Corpuscular Hemoglobin 31.6 pg (26-34); Mean Corpuscular Volume 92.9 fl (80-100); Nucleated Red Blood Cells Absolute Auto 0.000 K/mm3 (0.0-0.012); Nucleated Red Blood Cells Perc 0.0 % (0.0-0.2); Platelet Count Result 205 k/mm3 (150-375); Red Blood Count 4.91 M/mm3 (4.6-6.20); White Blood Count 11.9 K/mm3 (4.5-10.0)
[2024-10-01 06:19] LABS: Add Urine Microscopic? NO; Appearance Urine Clear (Clear); Glucose Urine UA Negative (Negative); Leukocyte Esterase Ur Negative LEU/UL (Negative); Nitrate Urine Negative (Negative); Specific Grav Ur 1.014 (1.001-1.035)
[2024-10-01 06:57] LABS: Alanine Aminotransferase 18 U/L (6-50); Albumin Level 4.8 g/dL (3.5-5.1); Alkaline Phosphatase 114 U/L (38-126); Anion Gap 9 mmol/L (4-12); Aspartate Amino Transferase 31 U/L (17-59); Bilirubin,Total 1.3 mg/dL (0.2-1.3); Blood Urea Nitrogen 27 mg/dL (9-20); Calcium 9.9 mg/dL (8.4-10.2); Carbon Dioxide 26 mmol/L (22-30); Chloride 102 mmol/L (98-107); Estimated CRCL calculation 37 ml/min; Estimated Glomerular Filt Rate 49; Glucose 154 mg/dL (65-110); Lipase 159 U/L (23-300); Potassium 4.1 mmol/L (3.4-5.0); Sodium 137 mmol/L (137-145); Total Protein 9.0 g/dL (6.3-8.2)
[2024-10-01 07:14] VITALS: BP 145/67; PULSE 74; RESP 17; O2SAT 98
--- NOTE | 2024-10-01 07:39 | ED_ITS ---
HPI - Abdominal Pain General Chief Complaint: Abdominal Pain Stated Complaint: abd pain Time Seen by Provider: 10/01/24 07:05 History of Present Illness HPI narrative: Patient is an 78-year-old male who presents ER with right lower quadrant abdominal pain. Sudden onset this morning around 2:00 a.m.. No fevers or chills. Has had urinary frequency with this. History of kidney stone in the past. No diarrhea. No alleviating factors or aggravating factors. Patient reports pain is 5/10 currently. Related Data Allergies Allergy/AdvReac Type Severity Reaction Status Date / Time Penicillins Allergy Unknown Unknown Verified 10/01/24 03:11 Review of Systems 2 Review of Systems: All systems reviewed & are unremarkable except as noted in HPI and below Constitutional: Constitutional: Reports no additional constitutional complaints ENT: Reports system reviewed and no additional complaints, except as documented Cardiovascular: Cardiovascular: Reports no additional cardiovascular complaints Respiratory: Respiratory: Reports no additional respiratory complaints Genitourinary: Genitourinary: Reports no additional male genitourinary complaints COUNTS INCLUDE 234 BEDS AT THE [facility] Past Medical History Medical History (Updated 10/01/24 @ 08:41 by Aaron Pedersen MD) H/O prostate cancer Diabetes Family History Family History Other Family history of Alzheimer's disease Family history of alcoholism Family history of hypercholesterolemia Family history of throat cancer Social History Social History Smoking status: Former smoker Smoking end date: 02/24/93 Alcohol intake: current Exam 2 Narrative: GENERAL: Well-appearing, well-nourished, and in no acute distress. HEAD: Normocephalic, atraumatic. ENT: Mucous membranes moist. CHEST: Clear to auscultation. No respiratory distress. HEART: Regular rate and rhythm. Normal peripheral pulses. ABDOMEN: Soft, nontender, nondistended. EXTREMITIES: Normal range of motion. No edema. SKIN: Warm, dry, no rash. NEURO: Alert and oriented x3. PSYCH: Normal mood and affect. Course Course Emergency Course: Patient informed of lab and imaging findings. It is felt he has passed a kidney stone. Appropriate for discharge home. His pain is improved with low-dose morphine. Vital Signs Vital signs: Vital Signs Temperature 97.3 F L 10/01/24 03:08 Pulse Rate 70 10/01/24 03:08 Respiratory Rate 20 10/01/24 03:08 Blood Pressure 134/72 10/01/24 03:08 Pulse Oximetry 99 10/01/24 03:08 Oxygen Delivery Room Air 10/01/24 03:08 Temperature 97.3 F L 10/01/24 03:08 Pulse Rate 74 10/01/24 07:14 Respiratory Rate 17 10/01/24 07:14 Blood Pressure 145/67 H 10/01/24 07:14 Pulse Oximetry 98 10/01/24 07:14 Oxygen Delivery Room Air 10/01/24 03:08 MDM - Abdominal Pain Lab Data 10/01/24 06:11 10/01/24 06:11 Labs: Lab Results 10/01/24 Range/Units 06:11 WBC 11.9 H (4.5-10.0) K/mm3 RBC 4.91 (4.6-6.20) M/mm3 Hgb 15.5 (14.0-18.0) g/dL Hct 45.6 (42.0-52.0) % MCV 92.9 (80-100) fl MCH 31.6 (26-34) pg MCHC 34.0 (32-36) g/dl RDW 12.9 (11.5-14.5) % Plt Count 205 (150-375) k/mm3 MPV 8.4 (7.4-10.4) fl Immature Gran % (Auto) 0.5 (0-0.5) % Neut % (Auto) 89.1 H (45.5-73.1) % Lymph % (Auto) 6.4 L (18.3-44.2) % Mathews % (Auto) 3.4 (2.6-8.5) % Eos % (Auto) 0.1 (0-4.4) % Baso % (Auto) 0.5 (0.2-1.2) % Lymph # (Auto) 0.76 L (0.9-3.2) K/mm3 Mathews # (Auto) 0.4 (0.1-0.6) K/mm3 Eos # (Auto) 0.0 (0-0.3) K/mm3 Baso # (Auto) 0.1 (0.0-0.1) K/mm3 Abs Immat Gran (auto) 0.06 H (0.00-0.031) K/mm3 Absolute Neuts (auto) 10.6 H (1.3-6.7) K/mm3 Absolute Nucleated RBC 0.000 (0.0-0.012) K/mm3 Nucleated RBC % 0.0 (0.0-0.2) % Sodium 137 (137-145) mmol/L Potassium 4.1 (3.4-5.0) mmol/L Chloride 102 (98-107) mmol/L Carbon Dioxide 26 (22-30) mmol/L Anion Gap 9 (4-12) mmol/L BUN 27 H (9-20) mg/dL Creatinine 1.39 H (0.7-1.3) mg/dL Estim Creat Clear Calc 37 ml/min Estimated GFR 49 L (59 - ) Glucose 154 H (65-110) mg/dL Calcium 9.9 (8.4-10.2) mg/dL Total Bilirubin 1.3 (0.2-1.3) mg/dL AST 31 (17-59) U/L ALT 18 (6-50) U/L Alkaline Phosphatase 114 (38-126) U/L Total Protein 9.0 H (6.3-8.2) g/dL Albumin 4.8 (3.5-5.1) g/dL Lipase 159 (23-300) U/L Urine Color Yellow (Yellow) Urine Appearance Clear (Clear) Urine pH 5.5 (5.0-9.0) Ur Specific [facility] 1.014 (1.001-1.035) Urine Protein Negative (Negative) mg/dL Urine Glucose (UA) Negative (Negative) mg/dL Urine Ketones Negative (Negative) mg/dL Ur Blood (Man) Negative (Negative) Urine Nitrate Negative (Negative) Urine Bilirubin Negative (Negative) Urine Urobilinogen 0.2 (<2.0) mg/dL Leukocyte Esterase Rfl Negative (Negative) IBETH/UL Imaging Data Radiologist's impression: ITS Impressions Abdomen/Pelvis CT 10/01/24 07:54 Impression: Cholelithiasis. Tiny urinary bladder stone. Mild fullness of the right ureter and right perinephric stranding could reflect sequelae of recently passed stone. Bibasilar atelectasis and pleural thickening/scarring. Discharge Plan Discharge Clinical Impression: Kidney stone Patient Disposition: Home Condition: Stable Instructions: Kidney Stones (ED) Additional Instructions: Return to the emergency department if you develop severe abdominal pain, severe nausea and vomiting to the point where you are unable to keep down fluids, if you develop chest pain or difficulty breathing, blood in your stool, dizziness or fainting, or if you develop any other new or concerning symptoms as these could be signs of more serious medical illness. Try to stay well hydrated. You have essentially passed a kidney stone and she did not have any additional discomfort. Patient Language: Azeri Prescriptions: No Action ciprofloxacin HCl [Cipro] 500 mg tablet 500 mg PO Q12H Qty: 10 0RF pantoprazole 40 mg tablet,delayed release (DR/EC) 40 mg PO BID 14 Days Qty: 28 0RF Follow-up/Referrals: PHYSICIAN NOT ON STAFF,NONSTAFF [Non-Staff] - 1 Week
--- OUTSIDE RECORDS SUMMARY | 2024-10-01 07:40 | XMS_ITS | Continuity of Care Document ---
Author Organization [facility] [place] [address] [place] [address] Phone Care Team Providers Care Vault Installer Name Role Phone [facility] Unavailable Unavail able Hannah Colindres Unavailable Unavailable Procedures Procedure Date Miscellaneous Vision Service - Supplies Vision Svcs Frames Purchases BF Plastic Sphcyl Howes To +/-4d .12-2d Scratch Resistant Coating Tint Photochromatic, Plastic Eye Exam, New Patient Refraction Advance Directives Directive Yes / No Effective Date File Name No Information Encounters Encounter Description Practice Location Reason(s) For Visit Diagnoses Date Provider Providers Copied on Encounter [facility], [address] [place] [address] [address], [place], [place], [id number], [place] tel:[phone] [facility] No Information 7 [facility] . [address] [place] [address], [id number], [place]. tel:[phone] Consulting Provider: Hannah Colindres, [address] [place], [address]. tel:[phone] [facility], [address] [place] [address] [address], [place], [place], [id number], tel:[phone] [facility] No Information 200 7 [facility] . [address], [place], [address], [place]. tel:[phone] Referring Provider: Mariano Alicea OD Rodri, [address], [place], [address]. tel:[phone] singer Provider: Isabelle De Leon, [address] [facility], [place], [address]. tel:[phone] [facility], [address], [place], [place], [address], [place] tel:[phone] [facility] No Information 7 Alicea MONIQUE Quintana. [address] , [address], [place], [address], [place]. tel:[phone] Family History Family Member Type Diagnosis Age [...]
--- OUTSIDE RECORDS SUMMARY | 2024-10-01 07:40 | XMS_ITS | Continuity of Care Document ---
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 [address], [place], [place], [address] , [place]. tel:[phone] Referring Provider: Alexis Blue, [address], [place], [place], [address]. tel:[phone] PREV VISIT, EST, 65 & OVER [facility], [address], [place], [place], [address], [place] tel:[phone] [facility] PHysicaxl (chief complaint) Dietary surveillance and counselingRoutine medical examPSA increasedOther and unspecified hyperlipidemiaBritt le diabetes 5 Mirza Espinoza. [address], [place], [place], [address] , [place]. tel:[phone] Referring Provider: Alexis Blue, [address], [place], [place], [address]. tel:[phone] [facility], [address], [place], [place], [address], [place] tel:[phone] [facility] No Information 5 Mirza Espinoza. [address], [place], [place], [address] , [place]. tel:[phone] [facility], [address], [place], [place], [address], [place] tel:[phone] [facility] No Information 5 Mirza Espinoza. [address], [place], [place], [address] , [place]. tel:[phone] OFFICE/OUTPA TIENT VISIT, EST [facility], [address], [place], [place], [address], [place] tel:[phone] [facility] HTN (chief complaint) shingle (chief complaint) DM (chief complaint) GERD (chief complaint) Dietary surveillance and counselingHypertens ion, UnspecifiedDiabetes Mellitus, Adult Onset, UncontrolledHerpes zoster without mention of complicationGERD 5 Mirza Espinoza. [address], [place], [place], [address] , [place]. tel:[phone] Referring Provider: Alexis Blue, [address], [place], [place], [address]. tel:[phone] OFFICE/OUTPA TIENT VISIT, [facility], [place], [address], [place], [place], [address], [place] tel:[phone] [facility] rash (chief complaint) Herpes zoster without mention of complication 5 Mirza Espinoza. [address], [place], [place], [address] , [place]. tel:[phone] Referring Provider: Gus [address], [place], [place], [address]. tel:[phone] OFFICE/OUTPA TIENT VISIT, [facility], [place], [address], [place], [place], [address], [place] tel:[phone] [facility] HLP (chief complaint) DM (chief complaint) HTN (chief complaint) cough (chief complaint) Dietary surveillance and counselingDiabetes Mellitus Type 2, UncomplicatedHypert ension, UnspecifiedOther and unspecified hyperlipidemiaCough 4 Mirza Espinoza. [address], [place], [place], [address] , [place]. tel:[phone] Referring Provider: [address], [place], [place], [address]. tel:[phone] PREV VISIT, EST, 65 & OVER [facility], [address], [place], [place], [address], [place] tel:[phone] [facility] PHysical (chief complaint) Dietary surveillance and counselingRoutine Medical ExamDiabetes Mellitus Type 2, UncomplicatedHypert ension, UnspecifiedOther and unspecified hyperlipidemiaRouti ne Medical Exam 4 Mirza Benson [address], [place], [place], [address] , [place]. [phone] Referring Provider: [address], [place], [place], [address]. tel:[phone] OFFICE/OUTPA TIENT VISIT, [facility], [place], [address], [place], [place], [address], [place] tel:[phone] [facility] skin infection (chief complaint) Dietary surveillance and counselingCelluliti s and abscess of leg, except foot 3 Mirza Benson [address], [place], [place], [address] , [place]. [phone] Referring Provider: [address], [place], [place], [address]. tel:[phone] PREV VISIT, EST, 65 & OVER [facility], [address], [place], [place], [address], [place] tel:[phone] [facility] Physical (chief complaint) Dietary surveillance and counselingRoutine Medical ExamOther and unspecified hyperlipidemiaDiabe chris Mellitus, Adult Onset, UncontrolledRoutine Medical ExamGERD 3 Mirza Benson [address], [place], [place], [address] , [place]. [phone] Referring Provider: Gus [address], [place], [place], [address]. tel:[phone] OFFICE/OUTPA TIENT VISIT, [facility], [place], [address], [place], [place], [address], [place] tel:[phone] [facility] HLP (chief complaint) DM (chief complaint) early satiety (chief complaint) Dietary surveillance and counselingDiabetes Mellitus Type 2, UncomplicatedOther and unspecified hyperlipidemiaHyper tension, Unspecified 2 Mirza Benson [address], [place], [place], [address] , . tel:[phone] Referring Provider: [address], [place], [place], [address]. tel:[phone] Family History Family Member Type Diagnosis Age At Onset Father Problem (finding) Cancer, throat Mother Problem (finding) natural cause Brother Problem (finding) Alive and well Payers Payer name Insurance type Covered democrat ID Authoriza tion(s) No Information Social History [...] Type Assessment Date assessment Dietary surveillance and vp & general counsel ing assessment Unspecified essential hypertensi on assessment Other and unspecified hyperlipid emia assessment Brittle diabetes assessment PSA increased Mental Status Date Cognitive Assessment Orientation - [place] ed to time, place, person, situation.
--- OUTSIDE RECORDS SUMMARY | 2024-10-01 07:40 | XMS_ITS | Continuity of Care Document ---
Author Name [facility] Organization [facility] Care Team Providers Care Nurse Auditor Name Role Phone [facility] Unavailable Unavailable Problems Combined list of problems from Department of Defense and Veterans Affairs facilities. It does not include entries that were removed or entered in error. 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 [facility] Deficiency of vitamin D3 Active Condition [facility] Diabetes mellitus Active Condition [facility] Exposure to potentially hazardous substance Active Condition [facility] Gastroesophageal reflux disease Active Condition [facility] Hyperlipidemia Active Condition [facility] Hypertension Active Condition [facility] Mild cognitive impairment Active Condition Sep 20, 2022 Entered By: EMIR HENDERSON Comment: Mild Vascular Neurocognitive Disorder [facility] Prostate cancer Active Condition [facility] Tinnitus Active Condition [facility] Diagnosis: ICD-10-CM H04.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 Active Diagnosis [facility] Diagnosis: ICD-10-CM L21.8 Other seborrheic dermatitis Active Diagnosis [facility] Diagnosis: ICD-10-CM I10 Essential (primary) hypertension Active Diagnosis [facility] Diagnosis: ICD-10-CM H91.93 Unspecified hearing loss, bilateral Active Diagnosis [facility] Diagnosis: ICD-10-CM I49.9 Cardiac arrhythmia, unspecified Active Diagnosis [facility] Diagnosis: ICD-10-CM 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 [facility] Diagnosis: ICD-10-CM H90.3 Sensorineural hearing loss, bilateral Active Diagnosis [facility] Diagnosis: ICD-10-CM R42 Dizziness and giddiness Active Diagnosis [facility] Diagnosis: ICD-10-CM E11.9 Type 2 diabetes mellitus without complications Active Diagnosis [facility] Diagnosis: ICD-10-CM I95.1 Orthostatic hypotension Active Diagnosis [facility] Diagnosis: ICD-10-CM L30.9 Dermatitis, unspecified Active Diagnosis [facility] Medications Combined list of outpatient medications from Department of Defense and [facility] Affairs facilities.Medications provided include 1) outpatient medications from the last 15 months, and 2) patient-reported medications. Medication Details Route Status Patient Instructions Prescription Expires Prescription Number Last Dispense Date Ordering Provider Order Date Order Qty Source AMLODIPINE BESYLATE 10MG TAB TAKE ONE TABLET BY MOUTH ONCE A DAY FOR HEART/BL OOD PRESSURE ORAL ACTIVE 04/17/2025 [id number] 5 CATY LINO 2024 90 [facility] AMLODIPINE BESYLATE 10MG TAB TAKE ONE TABLET BY MOUTH ONCE A DAY FOR HEART/BL OOD PRESSURE ORAL DISCONT INUED 03/11/2024 [id number] ME CARLO TTISA 2023 90 [facility] ATORVASTATI N CA 80MG TAB TAKE ONE-HALF TABLET BY MOUTH EVERY EVENING FOR CHOLESTE ROL. REPORT ANY UNEXPLAI SHAHZAD MUSCLE PAIN/WEA KNESS TO PROVIDER . ORAL ACTIVE 07/07/2025 [id number] 5 ME CARLO TTISA 2024 45 [facility] ATORVASTATI N CA 80MG TAB TAKE ONE-HALF TABLET BY MOUTH EVERY EVENING FOR CHOLESTE ROL. REPORT ANY UNEXPLAI SHAHZAD MUSCLE PAIN/WEA KNESS TO PROVIDER . ORAL DISCONT INUED 07/04/2024 [id number] 5 CALROME TTISA 2024 45 [facility] ATORVASTATI N CA 80MG TAB TAKE ONE-HALF TABLET BY MOUTH EVERY EVENING FOR CHOLESTE ROL. REPORT ANY UNEXPLAI SHAHZAD MUSCLE PAIN/WEA KNESS TO PROVIDER . ORAL DISCONT INUED 03/11/2024 [id number] 4 MATOS,ME TTISA 2023 45 [facility] CALCIUM 200MG (CA CITRATE-950 MG) TAB TAKE THREE TABLETS BY MOUTH ONCE A DAY ORAL ACTIVE TABSTEPHAN GUARDADO THERESA L 2018 [facility] CARBOXYMETH YLCELLULOSE NA 0.5% SOLN,OPH INSTILL 1 DROP IN BOTH EYES FOUR TIMES A DAY NEEDED OPHTHA LMIC 07/07/2024 [id number] JUHI ,PJ 2023 30 [facility] CHOLECALCIF YARELIS 50MCG (2,000UNIT) TAB TAKE ONE TABLET BY MOUTH ONCE A DAY FOR VITAMIN D DEFICIEN CY. ORAL ACTIVE 07/07/2025 [id number] 5 MATOS,AK TTISA 2024 100 [facility] CHOLECALCIF YARELIS 50MCG (2,000UNIT) TAB TAKE ONE TABLET BY MOUTH ONCE A DAY FOR VITAMIN D DEFICIEN CY. ORAL DISCONT INUED 06/17/2024 [id number] 5 MATOS,AK TTISA 2024 100 [facility] CHOLECALCIF YARELIS 50MCG (2,000UNIT) TAB TAKE ONE TABLET BY MOUTH ONCE A DAY FOR VITAMIN D DEFICIEN CY. ORAL DISCONT INUED 03/11/2024 [id number] 4 MATOS,AK TTISA 2023 100 [facility] CHONDROITIN /GLUCOSAMIN E CAP/TAB TAKE 1 CAP/TAB BY MOUTH ONCE A DAY ORAL ACTIVE STEPHAN SUÁREZ THERESA L 2018 [facility] CLOBETASOL PROPIONATE 0.05% SOLN,TOP APPLY SPARINGL Y TO AFFECTED AREA(S) THREE TIMES A DAY NEEDED FOR SEBORRHE IC DERMATIT IS (EXTERNA L USE ONLY) TOPICA L ACTIVE 04/22/2025 [id number] XAVIER CRAWFORD G 2024 50 [facility] CLOBETASOL PROPIONATE 0.05% SOLN,TOP APPLY SPARINGL Y TO AFFECTED AREA(S) THREE TIMES A DAY NEEDED FOR SEBORRHE IC DERMATIT IS (EXTERNA L USE ONLY) TOPICA L DISCONT INUED 05/16/2024 [id number] NAOMI STEEL P 2023 50 [facility] CARMELO N EMPAGLIFLOZ IN 25MG TAB TAKE ONE-HALF TABLET BY MOUTH ONCE A DAY FOR DIABETES ORAL 03/11/2024 [id number] CARLOAK TTISA 2023 45 [facility] KETOCONAZOL E 2% SHAMPOO USE SHAMPOO TO AFFECTED AREA(S) ONCE A DAY (EXTERNA L USE ONLY) (SHAKE WELL) TOPICA L ACTIVE 04/17/2025 [id number] 5 CATY LINO 2024 120 [facility] KETOCONAZOL E 2% SHAMPOO USE SHAMPOO TO AFFECTED AREA(S) ONCE A DAY (EXTERNA L USE ONLY) (SHAKE WELL) TOPICA L DISCONT INUED 03/11/2024 [id number] 5 CARLOAK TTISA 2023 120 [facility] METFORMIN HCL 500MG 24HR TAB,SA TAKE ONE TABLET BY MOUTH TWICE A DAY FOR BLOOD SUGAR CONTROL. TAKE WITH FOOD. AVOID ALCOHOL. DISCONTI NUE BEFORE GETTING XRAY DYE. ORAL ACTIVE 04/17/2025 [id number] 5 CATY LINO 2024 180 [facility] METFORMIN HCL 500MG 24HR TAB,SA TAKE ONE TABLET BY MOUTH TWICE A DAY FOR BLOOD SUGAR CONTROL. TAKE WITH FOOD. AVOID ALCOHOL. DISCONTI NUE BEFORE GETTING XRAY DYE. ORAL DISCONT INUED 03/11/2024 [id number] 4 CARLOAK TTISA 2023 180 [facility] MULTIVITAMI NS CAP/TAB TAKE 1 TABLET BY MOUTH ONCE A DAY FOR SUPPLEME NTATION. ORAL ACTIVE 04/17/2025 [id number] 5 CATY LINO 2024 100 [facility] MULTIVITAMI NS CAP/TAB TAKE 1 TABLET BY MOUTH ONCE A DAY FOR SUPPLEME NTATION. ORAL DISCONT INUED 03/11/2024 [id number] 4 MATOS,ME TTISA 2023 100 [facility] OMEPRAZOLE 20MG CAP,EC TAKE ONE CAPSULE BY MOUTH EVERY MORNING BEFORE A MEAL TO LOWER STOMACH ACID. TAKE 30 MINUTES PRIOR TO FOOD. ORAL ACTIVE 04/17/2025 [id number] 5 HESTERCATY BLISS C 2024 90 [facility] OMEPRAZOLE 20MG CAP,EC TAKE ONE CAPSULE BY MOUTH EVERY MORNING BEFORE A MEAL TO LOWER STOMACH ACID. TAKE 30 MINUTES PRIOR TO FOOD. ORAL DISCONT INUED 03/11/2024 [id number] 4 CARLOAK TTISA 2023 90 [facility] PSYLLIUM PWDR,ORAL MIX AND DRINK 1 TEASPOON FUL BY MOUTH ONCE A DAY NEEDED FOR FIBER SUPPLEME NTATION MIX IN GLASS OF WATER/JU ICE. FLAVOR SUBSTITU TIONS MAY/WILL OCCUR AND SPECIFIC VARIETIE S WILL NOT BE PROVIDED . ORAL 03/11/2024 [id number] 4 MATOSAK TTISA 2023 390 [facility] VITAMIN B COMPLEX CAP TAKE 1 CAPSULE BY MOUTH QAM ORAL ACTIVE STEPHAN SUÁREZ THERESA L 2018 [facility] Immunizations Combined list of available immunizations from the Department of Defense and [facility] Affairs facilities. Immunization Series Date Given Administered By Site Reaction Lot Number CVX Code Drug Plant Wire Chief Status Comments Source COVID-19 ([place]), MRNA, LNP-S, PF, LOVE-SUCROSE, 30 MCG/0.3 ML (AGES 12+ YEARS) 2023 309 complet ed Completed Series, HISTORICA L INFORMATI ON - FROM OTHER PROVIDER, [facility] INFLUENZA, UNSPECIFIED FORMULATION 2023 88 complet ed Completed Series, HISTORICA L INFORMATI ON - FROM OTHER PROVIDER, [facility] COVID-19 ([place]), MRNA, LNP-S, PF, 50 MCG/0.5 ML (AGES 12+ YEARS) 1 2023 NOHELIA NICHOLS RIGHT DELTO ID [id number] 312 complet ed ADMINISTE RED AT [facility] INFLUENZA VACCINE, QUADRIVALENT, ADJUVANTED 6 2022 205 complet ed HISTORICA L INFORMATI ON - FROM OTHER REGISTRY, [facility] INFLUENZA, UNSPECIFIED FORMULATION 2022 88 complet ed Completed Series, HISTORICA L INFORMATI ON - SOURCE UNSPECIFI ED, [facility] INFLUENZA, HIGH-DOSE, QUADRIVALENT 2021 197 complet ed HISTORICA L INFORMATI ON - FROM OTHER PROVIDER, Partner:Cyrus NUNEZ.Admin istered by:[facility] [id number].( [id number] [phone]).[facility]:[phone] .Address: [address] [place] [address] [place] .[id number] Dosage: ML 0.7 [facility] ([place]), MRNA, LNP-S, PF, 30 MCG/0.3 ML DOSE 3 2020 208 complet ed PFR; [id number]; 1 [facility] N INFLUENZA VACCINE, QUADRIVALENT, ADJUVANTED 2020 205 complet ed [facility] ZOSTER RECOMBINANT 2 2020 187 complet ed [facility] ZOSTER RECOMBINANT 1 2020 187 complet ed [facility] COVID-19 ([place]), MRNA, LNP-S, PF, 30 MCG/0.3 ML DOSE 2 2020 208 complet ed PFR; [id number]; 1 [facility] COVID-19 ([place]), MRNA, LNP-S, PF, 30 MCG/0.3 ML DOSE 1 2020 208 complet ed PFR; [id number]; [facility] INFLUENZA, HIGH-DOSE, QUADRIVALENT 2019 197 complet ed HISTORICA L INFORMATI ON - FROM OTHER PROVIDER, [facility] INFLUENZA, UNSPECIFIED FORMULATION 2019 88 complet ed [facility] PNEUMOCOCCAL POLYSACCHARID E PPV23 2019 33 complet ed [facility] INFLUENZA, INJECTABLE, MDCK, PRESERVATIVE FREE, QUADRIVALENT 2018 171 complet ed 02, Partner: [facility]. Administe red by: [facility] Clinician (NPI=Not Provided) . Partner 84 Lot#: [id number] Mfr: SEQIRUS [facility] TDAP 2018 115 complet ed Right Deltoid [facility] PNEUMOCOCCAL CONJUGATE PCV 13 2018 133 complet ed vaccine sheet from [facility] INFLUENZA, UNSPECIFIED FORMULATION 2017 88 complet ed [facility] INFLUENZA, HIGH DOSE SEASONAL 2 2017 135 complet ed HISTORICA L INFORMATI ON - FROM OTHER REGISTRY, [facility] N INFLUENZA, SPLIT (INCL. PURIFIED SURFACE ANTIGEN) 1 2017 15 complet ed HISTORICA L INFORMATI ON - FROM OTHER REGISTRY, [facility] Results Combined list of recent chemistry, [...] Specimen Type: BLOOD Comment: Test Performed by: [id number] Meter #: [id number] Ordering Provider: Jose Manuel REGALADO Report Released Date/Time: Apr 16, 2024 03:10 PM Reporting Lab: [address] [facility] [address] Performing Lab: [facility] [address] [place] [address] [facility] URINALYSIS (STL-PB) COLOR OF URINE Light- Yellow [...] Sep 22, 2023 10:50 AM Reporting Lab: [address] Performing Lab: [address] URINALYSIS (L-PB) BILIRUBIN.T OTAL [[place]] IN [...] Sep 22, 2023 10:50 AM Reporting Lab: [facility] [address] [place] [phone] Performing Lab: [address] URINALYSIS (STL-PB) PH OF URINE BY [...] Sep 22, 2023 10:50 AM Reporting Lab: [place] [address] [place] [address] Performing Lab: [place] [address] URINALYSIS (STL-PB) APPEARANCE OF URINE Clear [...] Sep 22, 2023 10:50 AM Reporting Lab: [place] [address] Performing Lab: [address] URINALYSIS (STL-PB) NITRITE [PRESENCE] IN URINE [...] Sep 22, 2023 10:50 AM Reporting Lab: [place] [address] Performing Lab: [address] [phone] [place] [address] URINALYSIS (L-PB) GLUCOSE [MASS/VOLUM E] IN URINE [...] Sep 22, 2023 10:50 AM Reporting Lab: [place] [phone] Performing Lab: [address] URINALYSIS (L-PB) PROTEIN [MASS/VOLUM E] IN [...] Sep 22, 2023 10:50 AM Reporting Lab: [address] [address] Performing Lab: [place] [id number] [place] [address] URINALYSIS (L-PB) URN.UROBILI NOGEN Normal mg/dL 09/22 [...] Sep 22, 2023 10:50 AM Reporting Lab: [facility] [address] [place] [phone] Performing Lab: [address] [phone] [place] [address] URINALYSIS (L-PB) HEMOGLOBIN [MASS/VOLUM E] IN URINE [...] Sep 22, 2023 10:50 AM Reporting Lab: [facility] [address] [place] [phone] Performing Lab: [address] [phone] [place] [address] URINALYSIS (L-PB) KETONES [MASS/VOLUM E] IN URINE [...] Sep 22, 2023 10:50 AM Reporting Lab: [address] [address] Performing Lab: [address] URINALYSIS (L-PB) URN.LEUK.ES T. Negati vemg/d [...] Sep 22, 2023 10:50 AM Reporting Lab: [place] [address] Performing Lab: [place] [phone] [place] [address] URINALYSIS (L-PB) SPECIFIC GRAVITY OF URINE 1.023 [...] Sep 22, 2023 10:50 AM Reporting Lab: [place] [address] Performing Lab: [place] [phone] [place] [address] B12 COBALAMIN (VITAMIN B12) [MASS/VOLUM E] IN SERUM OR PLASMA 620 pg/mL 213 - 816 09/21 Specimen Type: SERUM No comment entered. Ordering Provider: MIGDALIA MURPHY Report Released Date/Time: Sep 22, 2023 10:50 AM Reporting Lab: [address] [address] Performing Lab: [address] [phone] [place] [address] CBC LEUKOCYTES [#/VOLUME] IN BLOOD BY AUTOMATED COUNT 7.5 10*3/u L 3.6 - 11.2 09/21 Specimen Type: BLOOD No comment entered. Ordering Provider: MIGDALIA MURPHY Report Released Date/Time: Sep 22, 2023 10:50 AM Reporting Lab: [address] [address] Performing Lab: [address] [phone] CBC ERYTHROCYTE S [#/VOLUME] IN BLOOD BY AUTOMATED COUNT 5.05 10*6/u L 4.10 - 5.70 09/21 Specimen Type: BLOOD No comment entered. Ordering Provider: MIGDALIA MURPHY Report Released Date/Time: Sep 22, 2023 10:50 AM Reporting Lab: [address] [address] Performing Lab: [address] [phone] [place] [address] CBC HEMOGLOBIN [MASS/VOLUM E] IN BLOOD 15.7 g/dL 13.1 - 16.8 09/21 Specimen Type: BLOOD No comment entered. Ordering Provider: MIGDALIA MURPHY Report Released Date/Time: Sep 22, 2023 10:50 AM Reporting Lab: [address] [address] Performing Lab: [address] [phone] [place] [address] CBC HEMATOCRIT [VOLUME FRACTION] OF BLOOD 45.7 38.2 - 48.4 09/21 Specimen Type: BLOOD No comment entered. Ordering Provider: MIGDALIA MURPHY Report Released Date/Time: Sep 22, 2023 10:50 AM Reporting Lab: [facility] [address] [place] [phone] Performing Lab: [address] [phone] [place] [address] CBC MCV [ENTITIC VOLUME] BY AUTOMATED COUNT 90.5 fL 80.0 - 100.0 09/21 Specimen Type: BLOOD No comment entered. Ordering Provider: MIGDALIA MURPHY Report Released Date/Time: Sep 22, 2023 10:50 AM Reporting Lab: [address] [address] Performing Lab: [phone] [place] [address] CBC MCH [ENTITIC MASS] BY AUTOMATED COUNT 31.1 pg 27.0 - 34.0 09/21 Specimen Type: BLOOD No comment entered. Ordering Provider: MIGDALIA MURPHY Report Released Date/Time: Sep 22, 2023 10:50 AM Reporting Lab: [facility] [address] [place] [phone] Performing Lab: [address] [phone] [place] [address] CBC MCHC [MASS/VOLUM E] BY AUTOMATED COUNT 34.4 g/dL 33.0 - 36.0 09/21 Specimen Type: BLOOD No comment entered. Ordering Provider: MIGDALIA MURPHY Report Released Date/Time: Sep 22, 2023 10:50 AM Reporting Lab: [facility] [address] [place] [phone] Performing Lab: [address] [phone] [place] [address] CBC PLATELETS [#/VOLUME] IN BLOOD BY AUTOMATED COUNT 201 10*3/u L 150 - 400 09/21 Specimen Type: BLOOD No comment entered. Ordering Provider: MIGDALIA MURPHY Report Released Date/Time: Sep 22, 2023 10:50 AM Reporting Lab: [facility] [address] [place] [phone] Performing Lab: [address] [phone] [place] [address] CBC PLATELET MEAN VOLUME [ENTITIC VOLUME] IN BLOOD BY AUTOMATED COUNT 9.2 fL 7.5 - 11.2 09/21 Specimen Type: BLOOD No comment entered. Ordering Provider: MIGDALIA MURPHY Report Released Date/Time: Sep 22, 2023 10:50 AM Reporting Lab: [address] [address] Performing Lab: [address] [phone] [place] [address] CBC ERYTHROCYTE DISTRIBUTIO N WIDTH [RATIO] BY AUTOMATED COUNT 13.2 11.8 - 15.1 09/21 Specimen Type: BLOOD No comment entered. Ordering Provider: MIGDALIA MURPHY Report Released Date/Time: Sep 22, 2023 10:50 AM Reporting Lab: [address] [address] Performing Lab: [address] [phone] [place] [address] CBC LYMPHOCYTES /100 LEUKOCYTES IN BLOOD BY AUTOMATED COUNT 17 09/21 Specimen Type: BLOOD No comment entered. Ordering Provider: MIGDALIA MURPHY Report Released Date/Time: Sep 22, 2023 10:50 AM Reporting Lab: [address] [address] Performing Lab: [address] [address] [facility] CBC MONOCYTES/1 00 LEUKOCYTES IN BLOOD BY AUTOMATED COUNT 11 09/21 Specimen Type: BLOOD No comment entered. Ordering Provider: MIGDALIA MURPHY Report Released Date/Time: Sep 22, 2023 10:50 AM Reporting Lab: [facility] [address] [place], [place] [phone] Performing Lab: [facility] [address] [place], [place] [phone] [address] CBC NEUTROPHILS /100 LEUKOCYTES IN BLOOD BY AUTOMATED COUNT 70 09/21 Specimen Type: BLOOD No comment entered. Ordering Provider: MIGDALIA MURPHY Report Released Date/Time: Sep 22, 2023 10:50 AM Reporting Lab: [facility] [address] [place] [address] Performing Lab: [address] CBC EOSINOPHILS /100 LEUKOCYTES IN BLOOD BY AUTOMATED COUNT 1 09/21 Specimen Type: BLOOD No comment entered. Ordering Provider: MIGDALIA MURPHY Report Released Date/Time: Sep 22, 2023 10:50 AM Reporting Lab: [facility] [address] [place] [address] Performing Lab: [place] [id number] CBC BASOPHILS/1 00 LEUKOCYTES IN BLOOD BY AUTOMATED COUNT 1 09/21 Specimen Type: BLOOD No comment entered. Ordering Provider: MIGDALIA MURPHY Report Released Date/Time: Sep 22, 2023 10:50 AM Reporting Lab: [facility] [address] [place], [place] [phone] Performing Lab: [facility] [address] [place] [address] CBC LYMPHOCYTES [#/VOLUME] IN BLOOD BY AUTOMATED COUNT 1.30 10*3/u L 0.77 - 4.50 09/21 Specimen Type: BLOOD No comment entered. Ordering Provider: MIGDALIA MURPHY Report Released Date/Time: Sep 22, 2023 10:50 AM Reporting Lab: [address] [address] Performing Lab: [address] [phone] CBC MONOCYTES [#/VOLUME] IN BLOOD BY AUTOMATED COUNT 0.79 10*3/u L 0.19 - 0.80 09/21 Specimen Type: BLOOD No comment entered. Ordering Provider: MIGDALIA MURPHY Report Released Date/Time: Sep 22, 2023 10:50 AM Reporting Lab: [place] [address] Performing Lab: [address] CBC NEUTROPHILS [#/VOLUME] IN BLOOD BY AUTOMATED COUNT 5.25 10*3/u L 2.10 - 8.00 09/21 Specimen Type: BLOOD No comment entered. Ordering Provider: MIGDALIA MURPHY Report Released Date/Time: Sep 22, 2023 10:50 AM Reporting Lab: [address] [address] Performing Lab: [address] [phone] [place] [address] CBC EOSINOPHILS [#/VOLUME] IN BLOOD BY AUTOMATED COUNT 0.06 10*3/u L 0.00 - 0.60 09/21 Specimen Type: BLOOD No comment entered. Ordering Provider: MIGDALIA MURPHY Report Released Date/Time: Sep 22, 2023 10:50 AM Reporting Lab: [address] [address] Performing Lab: [address] [phone] [place] [address] CBC BASOPHILS [#/VOLUME] IN BLOOD BY AUTOMATED COUNT 0.05 10*3/u L 0.00 - 0.20 07/29 /2024 Specimen Type: BLOOD No comment entered. Ordering Provider: MIGDALIA MURPHY Report Released Date/Time: Sep 22, 2023 10:50 AM Reporting Lab: [facility] [address] [place] [phone] Performing Lab: [phone] [place] [address] COMPREHENS DANIEL METABOLIC PANEL CREATININE [MASS/VOLUM E] IN SERUM OR PLASMA 1.08 mg/dL 0.7 - 1.3 09/21 Specimen Type: PLASMA Comment: No hemolysis noted. Ordering Provider: MIGDALIA MURPHY Report Released Date/Time: Sep 22, 2023 10:50 AM Reporting Lab: [address] [address] Performing Lab: [address] [phone] [place] [address] COMPREHENS DANIEL METABOLIC PANEL UREA NITROGEN [MASS/VOLUM E] IN SERUM OR PLASMA 20.3 mg/dL 9.0 - 25.0 09/21 Specimen Type: PLASMA Comment: No hemolysis noted. Ordering Provider: MIGDALIA MURPHY Report Released Date/Time: Sep 22, 2023 10:50 AM Reporting Lab: [address] [address] Performing Lab: [address] [address] [facility] COMPREHENS DANIEL METABOLIC PANEL GLUCOSE [MASS/VOLUM E] IN SERUM OR PLASMA 95 mg/dL 72 - 99 09/21 Specimen Type: PLASMA Comment: No hemolysis noted. Ordering Provider: MIGDALIA MURPHY Report Released Date/Time: Sep 22, 2023 10:50 AM Reporting Lab: [address] [address] Performing Lab: [address] [phone] COMPREHENS DANIEL METABOLIC PANEL SODIUM [MOLES/VOLU ME] IN SERUM OR PLASMA 140 meq/L 136 - 145 09/21 Specimen Type: PLASMA Comment: No hemolysis noted. Ordering Provider: MIGDALIA MURPHY Report Released Date/Time: Sep 22, 2023 10:50 AM Reporting Lab: [facility] [address] [facility] [address] Performing Lab: [facility] [address] [facility] [phone] COMPREHENS DANIEL METABOLIC PANEL POTASSIUM [MOLES/VOLU ME] IN SERUM OR PLASMA 3.8 meq/L 3.5 - 5 09/21 Specimen Type: PLASMA Comment: No hemolysis noted. Ordering Provider: MIGDALIA MURPHY Report Released Date/Time: Sep 22, 2023 10:50 AM Reporting Lab: [facility] [address] [facility] [address] Performing Lab: [facility] [address] [facility] [phone] [place] [address] COMPREHENS DANIEL METABOLIC PANEL CHLORIDE [MOLES/VOLU ME] IN SERUM OR PLASMA 104 meq/L 98 - 107 09/21 Specimen Type: PLASMA Comment: No hemolysis noted. Ordering Provider: MIGDALIA MURPHY Report Released Date/Time: Sep 22, 2023 10:50 AM Reporting Lab: [facility] [address] [facility] [id number] Performing Lab: [facility] [address] [facility] [id number] [place] [address] COMPREHENS DANIEL METABOLIC PANEL CARBON DIOXIDE, TOTAL [MOLES/VOLU ME] IN SERUM OR PLASMA 24 meq/L 22 - 31 09/21 Specimen Type: PLASMA Comment: No hemolysis noted. Ordering Provider: MIGDALIA MURPHY Report Released Date/Time: Sep 22, 2023 10:50 AM Reporting Lab: [facility] [address] [facility] [id number] Performing Lab: [facility] [address] [facility] [id number] [place] [address] COMPREHENS DANIEL METABOLIC PANEL CALCIUM [MASS/VOLUM E] IN SERUM OR PLASMA 9.8 mg/dL 8.4 - 10.4 09/21 Specimen Type: PLASMA Comment: No hemolysis noted. Ordering Provider: MIGDALIA MURPHY Report Released Date/Time: Sep 22, 2023 10:50 AM Reporting Lab: [facility] [address] [place] [id number] Performing Lab: [address] [id number] [place] [address] COMPREHENS DANIEL METABOLIC PANEL PROTEIN [MASS/VOLUM E] IN SERUM OR PLASMA 7.9 g/dL 6 - 8.6 09/21 Specimen Type: PLASMA Comment: No hemolysis noted. Ordering Provider: MIGDALIA MURPHY Report Released Date/Time: Sep 22, 2023 10:50 AM Reporting Lab: [facility] [address] [place] [phone] Performing Lab: [facility] [address] [place] [phone] [place] [address] COMPREHENS DANIEL METABOLIC PANEL ALBUMIN [MASS/VOLUM E] IN SERUM OR PLASMA 4.3 g/dL 3.4 - 5 09/21 Specimen Type: PLASMA Comment: No hemolysis noted. Ordering Provider: MIGDALIA MURPHY Report Released Date/Time: Sep 22, 2023 10:50 AM Reporting Lab: [facility] [address] [place] [phone] Performing Lab: [facility] [address] [place] [phone] [facility] COMPREHENS DANIEL METABOLIC PANEL BILIRUBIN.T OTAL [MASS/VOLUM E] IN SERUM OR PLASMA 1.1 mg/dL 0.2 - 1.2 09/21 Specimen Type: PLASMA Comment: No hemolysis noted. Ordering Provider: MIGDALIA MURPHY Report Released Date/Time: Sep 22, 2023 10:50 AM Reporting Lab: [facility] [address] [place] [phone] Performing Lab: [facility] [address] [place] [phone] [facility] COMPREHENS DANIEL METABOLIC PANEL ALKALINE PHOSPHATASE [ENZYMATIC ACTIVITY/VO LUME] IN SERUM OR PLASMA 119 U/L 40 - 150 09/21 Specimen Type: PLASMA Comment: No hemolysis noted. Ordering Provider: MIGDALIA MURPHY Report Released Date/Time: Sep 22, 2023 10:50 AM Reporting Lab: [facility] [address] [place] [phone] Performing Lab: [facility] [address] [place] [phone] [place] [address] COMPREHENS DANIEL METABOLIC PANEL ASPARTATE AMINOTRANSF ERASE [ENZYMATIC ACTIVITY/VO LUME] IN SERUM OR PLASMA 24 U/L 5 - 34 09/21 Specimen Type: PLASMA Comment: No hemolysis noted. Ordering Provider: MIGDALIA MURPHY Report Released Date/Time: Sep 22, 2023 10:50 AM Reporting Lab: [facility] [address] [place] [phone] Performing Lab: [facility] [address] [place] [phone] [facility] COMPREHENS DANIEL METABOLIC PANEL ALANINE AMINOTRANSF ERASE [ENZYMATIC ACTIVITY/VO LUME] IN SERUM OR PLASMA 12 U/L 8 - 40 09/21 Specimen Type: PLASMA Comment: No hemolysis noted. Ordering Provider: MIGDALIA MURPHY Report Released Date/Time: Sep 22, 2023 10:50 AM Reporting Lab: [facility] [address] [place] [phone] Performing Lab: [facility] [address] [place] [phone] [facility] COMPREHENS DANIEL METABOLIC PANEL GLOMERULAR FILTRATION RATE/1.73 SQ M.PREDICTED [VOLUME RATE/AREA] IN SERUM, PLASMA OR BLOOD BY CREATININE- BASED FORMULA (CKD-EPI 2020) 69.8 60 09/21 Specimen Type: PLASMA Comment: No hemolysis noted. Ordering Provider: MIGDALIA MURPHY Report Released Date/Time: Sep 22, 2023 10:50 AM Reporting Lab: [address] [phone] Performing Lab: [address] [address] [facility] FERRITIN FERRITIN [MASS/VOLUM E] IN SERUM OR PLASMA 105.69 ng/mL 22 - 275 09/21 Specimen Type: SERUM No comment entered. Ordering Provider: MIGDALIA MURPHY Report Released Date/Time: Sep 22, 2023 11:11 AM Reporting Lab: [address] [phone] Performing Lab: [address] [phone] [facility] IRON/TIBC PROFILE IRON BINDING CAPACITY [MASS/VOLUM E] IN SERUM OR PLASMA 323 ug/dL 250 - 450 09/21 Specimen Type: SERUM No comment entered. Ordering Provider: MIGDALIA MURPHY Report Released Date/Time: Sep 22, 2023 11:11 AM Reporting Lab: [facility] [address] [place] [phone] Performing Lab: [facility] [address] [place] [phone] [facility] IRON/TIBC PROFILE TRANSFERRIN [MASS/VOLUM E] IN SERUM OR PLASMA 258 mg/dL 163 - 344 09/21 Specimen Type: SERUM No comment entered. Ordering Provider: MIGDALIA MURPHY Report Released Date/Time: Sep 22, 2023 11:11 AM Reporting Lab: [address] [address] Performing Lab: [facility] [address] [facility] [phone] [facility] IRON/TIBC PROFILE IRON SATURATION [MASS FRACTION] IN SERUM OR PLASMA 32 20 - 50 09/21 Specimen Type: SERUM No comment entered. Ordering Provider: MIGDALIA MURPHY Report Released Date/Time: Sep 22, 2023 11:11 AM Reporting Lab: [address] [phone] Performing Lab: [address] [phone] [facility] IRON/TIBC PROFILE IRON [MASS/VOLUM E] IN SERUM OR PLASMA 103 ug/dL 65 - 175 09/21 Specimen Type: SERUM No comment entered. Ordering Provider: MIGDALIA MURPHY Report Released Date/Time: Sep 22, 2023 11:11 AM Reporting Lab: [address] [phone] Performing Lab: [address] [address] [facility] LIPID PANEL (STL) CHOLESTEROL [MASS/VOLUM E] IN SERUM OR PLASMA 174 mg/dL 0 - 200 09/21 Specimen Type: PLASMA Comment: No hemolysis noted. Ordering Provider: MIGDALIA MURPHY Report Released Date/Time: Sep 22, 2023 10:50 AM Reporting Lab: [address] [phone] Performing Lab: [address] [phone] [facility] LIPID PANEL (STL) TRIGLYCERID E [MASS/VOLUM E] IN SERUM OR PLASMA 190 mg/dL 0 - 150 09/21 H Specimen Type: PLASMA Comment: No hemolysis noted. Ordering Provider: MIGDALIA MURPHY Report Released Date/Time: Sep 22, 2023 10:50 AM Reporting Lab: [address] [phone] Performing Lab: [facility] [address] [place] [address] [facility] LIPID PANEL (STL) CHOLESTEROL IN LDL [MASS/VOLUM E] IN SERUM OR PLASMA BY CALCULATION 92 mg/dL 09/21 Specimen Type: PLASMA Comment: No hemolysis noted. Ordering Provider: MIGDALIA MURPHY Report Released Date/Time: Sep 22, 2023 10:50 AM Reporting Lab: [facility] [address] [place] [place] [address] Performing Lab: [place] [address] [facility] [phone] [place] [address] LIPID PANEL (STL) CHOLESTEROL IN HDL [MASS/VOLUM E] IN SERUM OR PLASMA 44 mg/dL 40 09/21 Specimen Type: PLASMA Comment: No hemolysis noted. Ordering Provider: MIGDALIA MURPHY Report Released Date/Time: Sep 22, 2023 10:50 AM Reporting Lab: [facility] [address] [place] [address] Performing Lab: [place] [address] [facility] [phone] [place] [address] TSH (MA-PB) THYROTROPIN [UNITS/VOLU ME] IN SERUM OR PLASMA 4.565 u[IU]/ mL 0.47 - 5 09/21 Specimen Type: SERUM No comment entered. Ordering Provider: MIGDALIA MURPHY Report Released Date/Time: Sep 22, 2023 10:50 AM Reporting Lab: [facility] [address] [place] [facility] [place] [address] Performing Lab: [phone] [place] [address] VITAMIN D, 25-HYDROXY 25-HYDROXYV ITAMIN D3 [MASS/VOLUM E] IN SERUM OR PLASMA 47.8 ng/mL 30 - 96 09/21 Specimen Type: SERUM No comment entered. Ordering Provider: MIGDALIA MURPHY Report Released Date/Time: Sep 22, 2023 10:50 AM Reporting Lab: [facility] [address] [place] [facility] [place] [address] Performing Lab: [facility] [address] [facility] [phone] [facility] Vital Signs Combined list of inpatient and outpatient Vital Signs from Department of [facility] and [facility] Affairs, ranging from 12 months to all on record, depending upon the facility. Vital Sign Value Date Comments Source SYSTOLIC BLOOD PRESSURE 120 04/16/2024 14:13:01 [facility] DIASTOLIC BLOOD PRESSURE 69 04/16/2024 14:13:01 [facility] PULSE OXIMETRY 95 04/16/2024 14:13:01 [facility] WEIGHT 201 04/16/2024 14:13:01 [facility] BMI 31 kg/m2 04/16/2024 14:13:01 [facility] PAIN 0 04/16/2024 14:13:01 [facility] HEIGHT 68 04/16/2024 14:13:01 [facility] TEMPERATURE 98.8 04/16/2024 14:13:01 [facility] PULSE 88 04/16/2024 14:13:01 [facility] RESPIRATION 18 04/16/2024 14:13:01 [facility] Encounters Combined list of: 1) Encounters from Department of [facility] Affairs facilities going backup to the last 18 months, not all [place] inpatient encounters are included; 2) Encounters from the Department of [facility] facilities going backup to 280 months. Location Location Details Encounter Type Encounter Number Reason For Visit Attending Provider ADM Date DC Date Status Disposition Source [facility] HC PRO PHONE CALL 11-20 MIN [id number] Diagnos is: ICD-10- CM E11.9 Type 2 diabete s mellitu s without complic ations MAYDEN,CHR ISTINE M 04/08 [facility] HEARING AID EXAM BOTH EARS [id number] Diagnos is: ICD-10- CM H90.3 Sensori neural hearing loss, wanda kell COLUNGAKISHORE Flaherty E 04/[address] [facility] [place] [place] [id number] Diagnos is: ICD-10- CM H90.3 Sensori neural hearing loss, bilfrancisco castorena KISHORE COLUNGA E 04/30 [facility] Outpatient Encounter [id number] RACHEL MERAZ 05/06 [facility] Outpatient Encounter [id number] 05/06 [facility] OFFICE O/P EST LOW 20 MIN [id number] Diagnos is: ICD-10- CM L30.9 Dermati tis, unspeci fied TRACE RUELAS 05/15 [facility] Outpatient Encounter [id number] 05/25 [facility] Outpatient Encounter [id number] MARIA E DEL RIO 05/25 [facility] OFFICE O/P EST SF 10 MIN [id number] Diagnos is: ICD-10- CM I95.1 Orthost atic hypoten EULALIO Celaya 05/25 [facility] OFF/OP EST MAY X REQ PHY/QHP [id number] Diagnos is: ICD-10- CM I95.1 Orthost atic hypoten mahnaz COLON,CHR ISTINE M 05/25 [facility] PT EDUCATION NOC INDIVID [id number] Diagnos is: ICD-10- CM I10 Essenti al (primar y) hyperte nsion DARLENE,CHR TOROTINE M 06/03 [facility] OFFICE O/P EST MOD 30 MIN [id number] Diagnos is: ICD-10- CM E11.9 Type 2 diabete s mellitu s without complic ations PJ REYNAGA 07/06 [facility] CONFORMITY EVALUATION [id number] Diagnos is: ICD-10- CM H91.93 Unspeci fied hearing loss, KISHORE Ga E 07/09 [facility] Outpatient Encounter [id number] 08/03 [facility] OFFICE O/P EST SF 10 MIN [id number] Diagnos is: ICD-10- CM R42 Dizzine ss and giddine ss ADALI VELAZQUEZ S 08/[address] [facility] HEARING AID CHECK BOTH EARS [id number] Diagnos is: ICD-10- CM H90.3 Sensori neural hearing loss, KISHORE Ga E 08/25 [facility] En[facility] [id number] 08/25 [facility] OFFICE O/P EST HI 40 MIN [id number] Diagnos is: ICD-10- CM I10 Essenti al (primar y) hyperte nsion JEFFREY,CH IDIMMA N 09/21 [facility] Outpatient Encounter [id number] 09/21 [facility] Outpatient Encounter [id number] 09/30 [facility] Outpatient Encounter [id number] DARLENE,CHR ISTINE M 10/02 [facility] Outpatient Encounter [id number] Diagnos is: ICD-10- CM 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 MET CARLO RAVINDRA 10/14 [facility] MYOCRD STRAIN IMG SPCKL TRCK [id number] Diagnos is: ICD-10- CM I49.9 Cardiac arrhyth odilon, unspeci fied LEDA JEFFERS SH 10/19 [facility] EXT ECG>7D<15D REV&INTERP J [id number] Diagnos is: ICD-10- CM I49.9 Cardiac arrhyth odilon, unspeci fied TABITHA ROWLANDIT 10/27 [facility] Outpatient Encounter [id number] 11/24 [facility] HEARING AID FITTING/CH ECKING [id number] Diagnos is: ICD-10- CM H91.93 Unspeci fied hearing loss, bilater al KEANU,KISHORE S E 02/01 [facility] Outpatient Encounter [id number] ANG MILLER RNISHA C 03/24 [facility] OFFICE O/P EST MOD 30 MIN [id number] Diagnos is: ICD-10- CM I10 Essenti al (primar y) hyperte CATY Norwood C 04/16 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 Social History Type Response Date Comment Sourc e Tobacco smoking status NHIS VA-TOBACCO FORMER USER 09/22/2023 [facility] History of tobacco use [place]-TOBACCO QUIT 1 5 YRS OR MORE 09/22/2023 [facility] History of tobacco use VA-TOBACCO FORMER USER 07/09/2022 [facility] History of tobacco use SD-TOBACCO QUIT 1 5 YRS OR MORE 05/21/2021 [facility] History of tobacco use VA-TOBACCO FORMER USER 05/11/2020 [facility] History of tobacco use VA-TOBACCO FORMER USER 03/03/2018 [facility] Plan of Care List of future care activities from Department of [facility] Affairs facilities. Additional future care activities may be listed in the Assessment and Plan section. Date/Time Care Activity Care Activity Detail Facili ty 10/12/2024 AMBULATORY - NONE AMBULATORY - NONE [facility]
[2024-10-01] MEDS: ONDANSETRON INJ 4 MG/2 ML VIAL IV PUSH (07:44)
[2024-10-01] MEDS: MORPHINE SULFATE (*CRX) 4 MG/ML INJ 2 MG IV PUSH (07:44)
[2024-10-01 08:50] VITALS: BP 140/73; PULSE 74; RESP 17; O2SAT 99
== END 2024-10-01 08:51 | disposition home or self-care (01) ==
PROVIDERS: Student in an Organized Health Care Education/Training Program; Emergency Provider Emergency Medicine
DX: N20.0 Calculus of kidney (principal); Z85.46 Personal history of malignant neoplasm of prostate; E11.9 Type 2 diabetes mellitus without complications; Z87.891 Personal history of nicotine dependence
CPT/HCPCS: 36415; 74177; 80053; 81003; 83690; 85025; 96374; 96375; 99284; J2270; J2405; Q9967